=== PATIENT | female | born 1945 | race Caucasian/White ===

== ENCOUNTER 2018-04-09 16:51 | Inpatient (IN) | payer MEDICARE ==
[~2018-04-09] VITALS: Ht 167.6 cm; Wt 76.9 kg
[~2018-04-09 16:51] MED LIST: BENA20TA76 PO; BENA20TA82 PO; CLOP75TA15 PO; DABI150C PO; EZET10TA14 PO; GLIM2TAB2 PO; KRIL500C PO; MAGN400T6 PO; METO25TA6 PO; MULT-933 PO; PANT-47 PO; TRAZ-218 PO
[2018-04-09 17:44] LABS: BASOPHILS # (AUTO) 0.1 X10'3 (0-0.2); BASOPHILS % (AUTO) 0.9 % (0-1); EOSINOPHILS # (AUTO) 0.1 X10'3 (0-0.9); HEMATOCRIT 40.8 % (35.0-45.0); HEMOGLOBIN 14.1 g/dl (12.0-16.0); LYMPHOCYTES # (AUTO) 0.4 X10'3 (1.1-4.8); LYMPHOCYTES % (AUTO) 6.9 % (21-51); MEAN CORPUSCULAR HEMOGLOBIN 29.7 PG (27.0-31.0); MEAN CORPUSCULAR HGB CONC 34.7 % (33.0-36.5); MEAN CORPUSCULAR VOLUME 85.8 FL (78-98); MEAN PLATELET VOLUME 7.5 FL (7.4-10.4); MONOCYTES # (AUTO) 0.2 X10'3 (0-0.9); MONOCYTES % (AUTO) 2.6 % (2-12); NEUTROPHILS # (AUTO) 5.5 X10'3 (1.8-7.7); NEUTROPHILS % (AUTO) 88.6 % (42-75); PLATELET COUNT 186 X10'3 (140-440); RED BLOOD COUNT 4.75 X10'6 (4.20-5.60); WHITE BLOOD COUNT 6.3 X10'3 (4.5-11.0)
[2018-04-09 17:55] LABS: ALANINE AMINOTRANSFERASE 30 U/L (12-78); ALBUMIN 3.7 G/DL (3.4-5.0); ALKALINE PHOSPHATASE 103 IU/L (46-116); ANION GAP 12 (8-16); ASPARTATE AMINO TRANSFERASE 22 U/L (10-37); BILIRUBIN,TOTAL 0.7 MG/DL (0.1-1.0); BLOOD UREA NITROGEN 19 MG/DL (7-18); BUN/CREATININE RATIO 23.5 (6.6-38.0); CALCIUM 8.9 MG/DL (8.5-10.1); CHLORIDE 103 MMOL/L (99-107); CREATININE 0.81 MG/DL (0.40-0.90); GLUCOSE 154 MG/DL (70-104); POTASSIUM 3.5 MMOL/L (3.5-5.1); SODIUM 138 MMOL/L (135-145); TOTAL CARBON DIOXIDE 23.1 MMOL/L (24-32); TOTAL PROTEIN 7.4 G/DL (6.4-8.2); eGFR 69 ML/MIN
[2018-04-09 17:57] LABS: CLARITY,URINE CLEAR (Clear); COLOR,URINE YELLOW (Yellow); GLUCOSE, URINE >=1000 mg/dl (Neg); KETONES,URINE 40 mg/dl (Neg); LEUKOCYTE ESTERASE ,URINE NEGATIVE (Neg); NITRITES, URINE NEGATIVE (Neg); OCCULT BLOOD,URINE NEGATIVE (Neg); PROTEIN,URINE NEGATIVE (Neg); UROBILINOGEN,URINE 0.2 E.U/dL (0.2-1.0)
[2018-04-09 18:20] LABS: UA COLLECTION TYPE CLN CATCH MIDSTREAM
[2018-04-09] MEDS ORDERED: ondansetron/PF 4mg/2ml inj IV ONE ×2 (18:20→22:50)
[2018-04-09 18:21] LABS: BACTERIA,URINE 4+ /HPF (Neg); RBC,URINE NONE SEEN /HPF (0-2); SQUAMOUS EPITHELIAL CELL,UR FEW /LPF (FEW); WBC CLUMPS,URINE FEW /HPF (NEGATIVE); WBC,URINE 0-4 /HPF (0-4)
[2018-04-09] MEDS ORDERED: normal saline 1000ml 1,000 ML IV ONE (18:25)
[2018-04-09] MEDS ORDERED: iohexol 350MG/ML 100ml bottle IV ONE (19:09)
[2018-04-09] MEDS ORDERED: LORazepam 2 mg/ml vial IV ONE (20:15)
[2018-04-09] MEDS ORDERED: metoprolol tartrate 50mg tablet PO ONE ×2 (21:15→21:20)
[2018-04-09] MEDS ORDERED: normal saline 1000ML IV soln IVB ONE (21:15)
[2018-04-09] MEDS ORDERED: METO50TA7 PO (22:09)
[2018-04-09] MEDS ORDERED: GLIM1TAB46 PO (22:09)
[2018-04-09] MEDS ORDERED: MULT-955 PO (22:09)
[2018-04-09] MEDS ORDERED: MAGN400C PO (22:09)
[2018-04-09] MEDS ORDERED: EMPA25TA PO (22:09)
[2018-04-09] MEDS ORDERED: KRIL500C PO (22:09)
[2018-04-09] MEDS ORDERED: BENA10TA74 PO (22:09)
[2018-04-09] MEDS ORDERED: CLOP75TA15 PO (22:09)
[2018-04-09] MEDS ORDERED: EZET10TA14 PO (22:09)
[2018-04-09] MEDS ORDERED: diltiazem 5mg/ml 5ml inj. IV ONE (22:15)
[2018-04-09] MEDS ORDERED: normal saline 1000ml 1,000 ML IV SCH (22:48)
[2018-04-09] MEDS ORDERED: magnesium hydroxide 30ml (MOM) UD suspension PO PRN (22:50)
[2018-04-09] MEDS ORDERED: mag hydrox/Alum hydrox/simeth 30ml oral suspension PO PRN (22:50)
[2018-04-09] MEDS ORDERED: dextrose ORAL solution 15 GM/59 ML bottle PO PRN ×2 (22:50)
[2018-04-09] MEDS ORDERED: dextrose 50%-water 50ml dispensing syringe IV PRN ×2 (22:50)
[2018-04-09] MEDS ORDERED: ondansetron/PF 4mg/2ml inj IV PRN (22:50)
[2018-04-09] MEDS ORDERED: insulin Lispro (HumaLOG) vial - multi-dose SQ SCH (22:50)
[2018-04-09] MEDS ORDERED: MESSAGE TO PHARMACY PO ONE (22:50)
[2018-04-09] MEDS ORDERED: acetaminophen 325mg tablet PO PRN (22:50)
[2018-04-09] MEDS ORDERED: glucagon, human recombinant 1mg kit SUBCUT PRN (22:50)
[2018-04-09] MEDS ORDERED: diltiazem-NS 100mg/100ml 100 ML IV SCH (22:55)
[2018-04-09] MEDS ORDERED: traZODone 50mg tablet PO PRN (22:55)
[2018-04-09 23:17] LABS: HEMOGLOBIN A1C 7.1 % (4.5-6.2)
[2018-04-09 23:50] VITALS: BP 118/64
[2018-04-10] VITALS (13 sets, daily range): BP systolic 100–131; BP diastolic 44–67
[2018-04-10 05:46] LABS: BASOPHILS % (AUTO) 0 % (0-1); EOSINOPHILS % (AUTO) 0.5 % (0-6); HEMATOCRIT 38.7 % (35.0-45.0); HEMOGLOBIN 13.6 g/dl (12.0-16.0); LYMPHOCYTES # (AUTO) 0.4 X10'3 (1.1-4.8); LYMPHOCYTES % (AUTO) 7.6 % (21-51); MEAN CORPUSCULAR HEMOGLOBIN 30.2 PG (27.0-31.0); MEAN CORPUSCULAR VOLUME 86.3 FL (78-98); MEAN PLATELET VOLUME 7.1 FL (7.4-10.4); MONOCYTES # (AUTO) 0.2 X10'3 (0-0.9); MONOCYTES % (AUTO) 3.7 % (2-12); NEUTROPHILS # (AUTO) 4.2 X10'3 (1.8-7.7); NEUTROPHILS % (AUTO) 88.2 % (42-75); PLATELET COUNT 162 X10'3 (140-440); RED BLOOD COUNT 4.49 X10'6 (4.20-5.60); WHITE BLOOD COUNT 4.8 X10'3 (4.5-11.0)
[2018-04-10 06:02] LABS: ALANINE AMINOTRANSFERASE 27 U/L (12-78); ALBUMIN 3.1 G/DL (3.4-5.0); ALBUMIN/GLOBULIN RATIO 0.9 (1.1-1.5); ALKALINE PHOSPHATASE 93 IU/L (46-116); ANION GAP 13 (8-16); ASPARTATE AMINO TRANSFERASE 16 U/L (10-37); BILIRUBIN,TOTAL 0.7 MG/DL (0.1-1.0); BLOOD UREA NITROGEN 15 MG/DL (7-18); BUN/CREATININE RATIO 23.1 (6.6-38.0); CHLORIDE 107 MMOL/L (99-107); CREATININE 0.65 MG/DL (0.40-0.90); GLUCOSE 162 MG/DL (70-104); POTASSIUM 3.6 MMOL/L (3.5-5.1); SODIUM 141 MMOL/L (135-145); TOTAL CARBON DIOXIDE 20.7 MMOL/L (24-32); TOTAL PROTEIN 6.4 G/DL (6.4-8.2); eGFR 89 ML/MIN
[2018-04-10 07:48] LABS: PARATHYROID HORMONE 101 PG/ML (11-67)
[2018-04-10] MEDS: metoprolol tartrate 25mg tablet PO SCH ×2 (08:04→19:58)
[2018-04-10] MEDS: LIDOcaine 5% patch TP SCH (08:05)
[2018-04-10] MEDS: pantoprazole 40mg Tablet.DR PO SCH ×2 (08:05→20:01)
[2018-04-10] MEDS: diltiazem 30mg tablet PO SCH ×2 (16:01→20:00)
[2018-04-10] MEDS: dabigatran 150mg capsule PO SCH (20:02)
[2018-04-11] MEDS: diltiazem 30mg tablet PO SCH ×2 (02:40→08:23)
[2018-04-11 03:00] VITALS: BP 109/56
[2018-04-11 05:57] LABS: BASOPHILS % (AUTO) 0.3 % (0-1); EOSINOPHILS # (AUTO) 0.1 X10'3 (0-0.9); EOSINOPHILS % (AUTO) 1.4 % (0-6); HEMATOCRIT 37.3 % (35.0-45.0); HEMOGLOBIN 13.1 g/dl (12.0-16.0); LYMPHOCYTES # (AUTO) 1.1 X10'3 (1.1-4.8); MEAN CORPUSCULAR HEMOGLOBIN 30.8 PG (27.0-31.0); MEAN CORPUSCULAR HGB CONC 35.2 % (33.0-36.5); MEAN CORPUSCULAR VOLUME 87.5 FL (78-98); MEAN PLATELET VOLUME 7.6 FL (7.4-10.4); MONOCYTES # (AUTO) 0.4 X10'3 (0-0.9); NEUTROPHILS # (AUTO) 3.6 X10'3 (1.8-7.7); NEUTROPHILS % (AUTO) 69.3 % (42-75); PLATELET COUNT 145 X10'3 (140-440); RED BLOOD COUNT 4.27 X10'6 (4.20-5.60); WHITE BLOOD COUNT 5.2 X10'3 (4.5-11.0)
[2018-04-11 06:00] VITALS: BP 126/56
[2018-04-11 06:14] LABS: ALANINE AMINOTRANSFERASE 23 U/L (12-78); ALBUMIN 3.1 G/DL (3.4-5.0); ALBUMIN/GLOBULIN RATIO 0.9 (1.1-1.5); ALKALINE PHOSPHATASE 92 IU/L (46-116); ANION GAP 9 (8-16); ASPARTATE AMINO TRANSFERASE 17 U/L (10-37); BILIRUBIN,TOTAL 0.4 MG/DL (0.1-1.0); BLOOD UREA NITROGEN 13 MG/DL (7-18); BUN/CREATININE RATIO 19.4 (6.6-38.0); CALCIUM 8.3 MG/DL (8.5-10.1); CHLORIDE 106 MMOL/L (99-107); CREATININE 0.67 MG/DL (0.40-0.90); GLUCOSE 152 MG/DL (70-104); POTASSIUM 3.5 MMOL/L (3.5-5.1); SODIUM 139 MMOL/L (135-145); TOTAL CARBON DIOXIDE 24.2 MMOL/L (24-32); TOTAL PROTEIN 6.4 G/DL (6.4-8.2); eGFR 86 ML/MIN
[2018-04-11 07:15] LABS: IMMUNOGLOBULIN A, QN, SERUM 195 mg/dL (64-422); IMMUNOGLOBULIN G, QN, SERUM 1019 mg/dL (700-1600); IMMUNOGLOBULIN M, QN, SERUM 58 mg/dL (26-217)
[2018-04-11] MEDS: pantoprazole 40mg Tablet.DR PO SCH (08:22)
[2018-04-11] MEDS: dabigatran 150mg capsule PO SCH (08:22)
[2018-04-11] MEDS: LIDOcaine 5% patch TP SCH (08:23)
[2018-04-11] MEDS: metoprolol tartrate 25mg tablet PO SCH (08:23)
[2018-04-11] MEDS ORDERED: DILT120C62 PO (10:33)
== END 2018-04-11 11:00 | disposition home or self-care (01) | DRG 309 ==
LOC: ER 16:52 → ED HOLD 22:48 → PCU 3S 23:39
PROVIDERS: ADMIT Internal Medicine; ATTEND Family Medicine
PROC: B32T1ZZ Computerized Tomography (CT Scan) of Left Pulmonary Artery using Low Osmolar Contrast (ICD-10-PCS; principal; 2018-04-09)
PROC: B3201ZZ Computerized Tomography (CT Scan) of Thoracic Aorta using Low Osmolar Contrast (ICD-10-PCS; 2018-04-09)
PROC: B32S1ZZ Computerized Tomography (CT Scan) of Right Pulmonary Artery using Low Osmolar Contrast (ICD-10-PCS; 2018-04-09)
PROC: B4201ZZ Computerized Tomography (CT Scan) of Abdominal Aorta using Low Osmolar Contrast (ICD-10-PCS; 2018-04-09)
PROC: B4241ZZ Computerized Tomography (CT Scan) of Superior Mesenteric Artery using Low Osmolar Contrast (ICD-10-PCS; 2018-04-09)
PROC: B4281ZZ Computerized Tomography (CT Scan) of Bilateral Renal Arteries using Low Osmolar Contrast (ICD-10-PCS; 2018-04-09)
PROC: B4211ZZ Computerized Tomography (CT Scan) of Celiac Artery using Low Osmolar Contrast (ICD-10-PCS; 2018-04-09)
DX: I48.91 Unspecified atrial fibrillation (principal); M48.54XA Collapsed vertebra, not elsewhere classified, thoracic region, initial encounter for fracture; E11.9 Type 2 diabetes mellitus without complications; I47.1 Supraventricular tachycardia; I10 Essential (primary) hypertension; I25.10 Atherosclerotic heart disease of native coronary artery without angina pectoris; Z90.710 Acquired absence of both cervix and uterus; Z88.1 Allergy status to other antibiotic agents; Z88.0 Allergy status to penicillin; Z88.2 Allergy status to sulfonamides; Z88.8 Allergy status to other drugs, medicaments and biological substances; Z79.899 Other long term (current) drug therapy; Z85.3 Personal history of malignant neoplasm of breast; Z82.49 Family history of ischemic heart disease and other diseases of the circulatory system; Z83.3 Family history of diabetes mellitus; Z84.89 Family history of other specified conditions
CPT/HCPCS: 36415; 71045; 71275; 74175; 80053; 81001; 82784; 82948; 83036; 83970; 84443; 84484; 85025; 86334; 87070; 87077; 87088; 87186; 87502; 87503; 93005; 96374; 96375; 99285; J2060; J2405; J3490; J7030; Q9967

== ENCOUNTER 2018-06-27 10:09 | Emergency (ER) | payer MEDICARE ==
[~2018-06-27] VITALS: Ht 172.7 cm; Wt 80.0 kg
[~2018-06-27 10:09] MED LIST changes: +BENA10TA74 PO; -BENA20TA76 PO; -BENA20TA82 PO; -CLOP75TA15 PO; +DILT120C62 PO; +EMPA25TA PO; +MAGN400C PO; -MAGN400T6 PO; -METO25TA6 PO; +METO50TA7 PO; -MULT-933 PO; +MULT-955 PO
[2018-06-27 10:50] LABS: BASOPHILS % (AUTO) 0.3 % (0-1); EOSINOPHILS % (AUTO) 0.2 % (0-6); HEMATOCRIT 41.4 % (35.0-45.0); LYMPHOCYTES # (AUTO) 0.6 X10'3 (1.1-4.8); LYMPHOCYTES % (AUTO) 12.1 % (21-51); MEAN CORPUSCULAR HGB CONC 33.9 % (33.0-36.5); MEAN CORPUSCULAR VOLUME 88.6 FL (78-98); MONOCYTES # (AUTO) 0.2 X10'3 (0-0.9); MONOCYTES % (AUTO) 4.6 % (2-12); NEUTROPHILS # (AUTO) 3.9 X10'3 (1.8-7.7); NEUTROPHILS % (AUTO) 82.8 % (42-75); PLATELET COUNT 184 X10'3 (140-440); RED BLOOD COUNT 4.68 X10'6 (4.20-5.60); RED CELL DISTRIBUTION WIDTH 11.7 % (11.5-14.5); WHITE BLOOD COUNT 4.7 X10'3 (4.5-11.0)
[2018-06-27 11:03] LABS: PARTIAL THROMBOPLASTIN TIME 29 SECONDS (22-32); PROTHROMBIN TIME 10.6 SECONDS (9.0-12.0)
[2018-06-27 11:04] LABS: ALANINE AMINOTRANSFERASE 26 U/L (12-78); ALBUMIN 3.6 G/DL (3.4-5.0); ALBUMIN/GLOBULIN RATIO 0.9 (1.1-1.5); ALKALINE PHOSPHATASE 97 IU/L (46-116); ANION GAP 15 (8-16); ASPARTATE AMINO TRANSFERASE 13 U/L (10-37); BILIRUBIN,TOTAL 0.7 MG/DL (0.1-1.0); BLOOD UREA NITROGEN 20 MG/DL (7-18); BUN/CREATININE RATIO 28.6 (6.6-38.0); CALCIUM 8.4 MG/DL (8.5-10.1); CHLORIDE 102 MMOL/L (99-107); GLUCOSE 145 MG/DL (70-104); POTASSIUM 3.5 MMOL/L (3.5-5.1); SODIUM 137 MMOL/L (135-145); TOTAL CARBON DIOXIDE 20.3 MMOL/L (24-32); TOTAL PROTEIN 7.5 G/DL (6.4-8.2); eGFR 82 ML/MIN
[2018-06-27] MEDS ORDERED: normal saline 1000ml 1,000 ML IV ONE (11:30)
[2018-06-27 11:38] LABS: CLARITY,URINE CLEAR (Clear); COLOR,URINE YELLOW (Yellow); GLUCOSE, URINE >=1000 mg/dl (Neg); KETONES,URINE 40 mg/dl (Neg); LEUKOCYTE ESTERASE ,URINE NEGATIVE (Neg); NITRITES, URINE NEGATIVE (Neg); OCCULT BLOOD,URINE NEGATIVE (Neg); PH,URINE 5.5 (4.8-8.0); PROTEIN,URINE NEGATIVE (Neg); UROBILINOGEN,URINE 0.2 E.U/dL (0.2-1.0)
[2018-06-27 11:42] LABS: UA COLLECTION TYPE NON-SPECIFIED
[2018-06-27 12:07] LABS: BACTERIA,URINE NONE SEEN /HPF (Neg); MUCUS STRANDS NONE SEEN /LPF (Neg); RBC,URINE NONE SEEN /HPF (0-2); SQUAMOUS EPITHELIAL CELL,UR FEW /LPF (FEW); WBC,URINE 0-4 /HPF (0-4)
[2018-06-27 12:42] VITALS: BP 116/59
== END 2018-06-27 12:38 | disposition home or self-care (01) ==
LOC: ER 10:10
DX: I48.91 Unspecified atrial fibrillation (principal); I25.10 Atherosclerotic heart disease of native coronary artery without angina pectoris; I10 Essential (primary) hypertension; E11.9 Type 2 diabetes mellitus without complications; Z98.61 Coronary angioplasty status; Z88.0 Allergy status to penicillin; Z88.1 Allergy status to other antibiotic agents; Z88.2 Allergy status to sulfonamides; Z88.5 Allergy status to narcotic agent; Z88.8 Allergy status to other drugs, medicaments and biological substances; Z79.899 Other long term (current) drug therapy
CPT/HCPCS: 36415; 71045; 80053; 81001; 84484; 85025; 85610; 85730; 93005; 99284; J7030

== ENCOUNTER 2018-06-30 13:17 | Emergency (ER) | payer MEDICARE ==
[~2018-06-30] VITALS: Ht 167.6 cm; Wt 79.0 kg
[2018-06-30 15:19] VITALS: BP 149/108
== END 2018-06-30 15:21 | disposition home or self-care (01) ==
LOC: ER 13:17
DX: I48.91 Unspecified atrial fibrillation (principal); I25.10 Atherosclerotic heart disease of native coronary artery without angina pectoris; I10 Essential (primary) hypertension; E11.9 Type 2 diabetes mellitus without complications; Z95.5 Presence of coronary angioplasty implant and graft; Z85.3 Personal history of malignant neoplasm of breast; Z88.0 Allergy status to penicillin; Z88.8 Allergy status to other drugs, medicaments and biological substances; Z88.2 Allergy status to sulfonamides; Z88.1 Allergy status to other antibiotic agents; Z88.5 Allergy status to narcotic agent; Z88.6 Allergy status to analgesic agent
CPT/HCPCS: 93005; 99283

== ENCOUNTER 2018-07-21 13:53 | Day surgery (SDC) | payer MEDICARE ==
[~2018-07-21] VITALS: Ht 167.6 cm; Wt 78.7 kg
[2018-07-21] VITALS (12 sets, daily range): BP systolic 106–160; BP diastolic 58–80
[2018-07-21] MEDS ORDERED: normal saline 1000ml 1,000 ML IV SCH (14:30)
[2018-07-21] MEDS ORDERED: fentaNYL/PF 50MCG/1 ML 2ML syringe IV ONE (14:30)
[2018-07-21] MEDS ORDERED: MIDAZolam 5mg/ml 2ml vial IV ONE (14:30)
[2018-07-21] MEDS ORDERED: CALC-159 (14:51)
== END 2018-07-21 19:25 | disposition home or self-care (01) ==
LOC: SSTAY O 13:53
PROVIDERS: ATTEND Internal Medicine Interventional Cardiology
DX: I48.0 Paroxysmal atrial fibrillation (principal); I10 Essential (primary) hypertension; E11.9 Type 2 diabetes mellitus without complications; I25.10 Atherosclerotic heart disease of native coronary artery without angina pectoris; I47.1 Supraventricular tachycardia; Z85.3 Personal history of malignant neoplasm of breast; Z88.1 Allergy status to other antibiotic agents; Z88.2 Allergy status to sulfonamides; Z88.0 Allergy status to penicillin; Z88.6 Allergy status to analgesic agent; Z88.8 Allergy status to other drugs, medicaments and biological substances; Z79.899 Other long term (current) drug therapy; Z95.5 Presence of coronary angioplasty implant and graft; Z98.890 Other specified postprocedural states
CPT/HCPCS: 82948; 92960; 93005; J2250; J3010; J7030

== ENCOUNTER 2018-10-14 13:29 | Outpatient (CLI) | payer MEDICARE ==
[~2018-10-14 13:29] MED LIST changes: +CALC-159; -DILT120C62 PO
== END 2018-10-14 23:59 | disposition home or self-care (01) ==
LOC: VAS 13:29
PROVIDERS: ATTEND Family Medicine
DX: R60.0 Localized edema (principal); I10 Essential (primary) hypertension; E11.9 Type 2 diabetes mellitus without complications; Z88.0 Allergy status to penicillin; Z88.2 Allergy status to sulfonamides; Z88.1 Allergy status to other antibiotic agents; Z88.5 Allergy status to narcotic agent; Z88.6 Allergy status to analgesic agent
CPT/HCPCS: 93970

== ENCOUNTER 2020-04-03 06:38 | Emergency (ER) | payer MEDICARE ==
[~2020-04-03] VITALS: Ht 172.7 cm; Wt 79.5 kg
[~2020-04-03 06:38] MED LIST changes: -EZET10TA14 PO; +EZET10TA6 PO; -GLIM2TAB2 PO; +GLIM2TAB6 PO; -TRAZ-218 PO; +TRAZ-251 PO
--- NOTE | 2020-04-03 07:14 | NUR ---
PT BROUGHT IN FROM HOME BY EMS PT STATS THAT LAST NIGHT SHE FELT HER HEART RATE INCREASE BUT TRIED TO SLEEP IT OFF BUT WOKE IT STILL FELLING IT GOING FAST SO SHE CALLED EMS TO BE BROUGHT IN
[2020-04-03 07:23] LABS: BASOPHILS % (AUTO) 0.7 % (0-1); EOSINOPHILS # (AUTO) 0.1 X10'3 (0-0.9); EOSINOPHILS % (AUTO) 2.2 % (0-6); HEMATOCRIT 36.4 % (35.0-45.0); HEMOGLOBIN 12.4 g/dl (12.0-16.0); LYMPHOCYTES # (AUTO) 2.5 X10'3 (1.1-4.8); LYMPHOCYTES % (AUTO) 42.7 % (21-51); MEAN CORPUSCULAR HEMOGLOBIN 30.7 PG (27.0-31.0); MEAN CORPUSCULAR HGB CONC 34.2 g/dL (33.0-36.5); MEAN CORPUSCULAR VOLUME 89.7 FL (78-98); MEAN PLATELET VOLUME 7.1 FL (7.4-10.4); MONOCYTES # (AUTO) 0.4 X10'3 (0-0.9); MONOCYTES % (AUTO) 6.6 % (2-12); NEUTROPHILS # (AUTO) 2.8 X10'3 (1.8-7.7); NEUTROPHILS % (AUTO) 47.8 % (42-75); PLATELET COUNT 179 X10'3 (140-440); RED BLOOD COUNT 4.05 X10'6 (4.20-5.60); RED CELL DISTRIBUTION WIDTH 12.9 % (11.5-14.5); WHITE BLOOD COUNT 5.8 X10'3 (4.5-11.0)
--- NOTE | 2020-04-03 07:24 | NUR ---
PT STATE HER HEART RATE IS STARTING TO FEEL LIKE IT NORMALY DOES
[2020-04-03 07:34] LABS: PARTIAL THROMBOPLASTIN TIME 27 SECONDS (22-32)
[2020-04-03 07:43] LABS: ALANINE AMINOTRANSFERASE 51 U/L (12-78); ALBUMIN/GLOBULIN RATIO 1.1 (1.1-1.5); ALKALINE PHOSPHATASE 78 IU/L (46-116); ASPARTATE AMINO TRANSFERASE 19 U/L (10-37); BILIRUBIN,TOTAL 0.6 MG/DL (0.1-1.0); BLOOD UREA NITROGEN 15 MG/DL (7-18); BUN/CREATININE RATIO 18.1 (6.6-38.0); CALCIUM 9.3 MG/DL (8.5-10.1); CREATININE 0.83 MG/DL (0.40-0.90); GLUCOSE 228 MG/DL (70-104); MAGNESIUM 1.8 MG/DL (1.5-2.4); TOTAL CARBON DIOXIDE 24.1 MMOL/L (24-32); TOTAL PROTEIN 7.6 G/DL (6.4-8.2); eGFR 67 ML/MIN
[2020-04-03 07:48] LABS: ANION GAP 13 (8-16); CHLORIDE 100 MMOL/L (99-107); POTASSIUM 3.3 MMOL/L (3.5-5.1); SODIUM 137 MMOL/L (135-145)
[2020-04-03] MEDS ORDERED: propofol 10mg/ml 20ml vial IV ONE (07:55)
[2020-04-03] MEDS ORDERED: metoprolol tartrate 1mg/ml inj IV ONE ×3 (08:55→10:25)
--- NOTE | 2020-04-03 10:37 | NUR ---
SECOND DOSE OF METROPROLOL GIVEN HEART RATE [id number]
[2020-04-03] MEDS ORDERED: metoprolol succinate 25mg (24-HOUR) SR. Tablet PO SCH (11:17)
[2020-04-03 14:20] VITALS: BP 144/92
== END 2020-04-03 13:24 | disposition home or self-care (01) ==
LOC: ER 06:38
DX: I48.91 Unspecified atrial fibrillation (principal); I25.10 Atherosclerotic heart disease of native coronary artery without angina pectoris; I10 Essential (primary) hypertension; E11.9 Type 2 diabetes mellitus without complications; Z98.51 Tubal ligation status; Z88.0 Allergy status to penicillin; Z88.2 Allergy status to sulfonamides; Z88.6 Allergy status to analgesic agent; Z88.5 Allergy status to narcotic agent; Z88.8 Allergy status to other drugs, medicaments and biological substances; Z79.899 Other long term (current) drug therapy
CPT/HCPCS: 36415; 71045; 80053; 83735; 83880; 84484; 85025; 85610; 85730; 93005; 96374; 96376; 99284; 99285; J3490

== ENCOUNTER 2022-03-17 12:17 | Inpatient (IN) | payer MEDICARE ==
[~2022-03-17] VITALS: Ht 203.2 cm; Wt 81.5 kg
[~2022-03-17 12:17] MED LIST changes: -CALC-159; +CALC-159 PO
[2022-03-17 13:11] LABS: BASOPHILS % (AUTO) 0.3 % (0-1); EOSINOPHILS # (AUTO) 0.1 X10'3 (0-0.9); EOSINOPHILS % (AUTO) 0.7 % (0-6); HEMATOCRIT 42.4 % (35.0-45.0); HEMOGLOBIN 14.7 g/dl (12.0-16.0); LYMPHOCYTES # (AUTO) 1.7 X10'3 (1.1-4.8); LYMPHOCYTES % (AUTO) 22.6 % (21-51); MEAN CORPUSCULAR HEMOGLOBIN 30.7 PG (27.0-31.0); MEAN CORPUSCULAR HGB CONC 34.7 g/dL (33.0-36.5); MEAN CORPUSCULAR VOLUME 88.5 FL (78-98); MEAN PLATELET VOLUME 7.5 FL (7.4-10.4); MONOCYTES # (AUTO) 0.5 X10'3 (0-0.9); MONOCYTES % (AUTO) 6.8 % (2-12); NEUTROPHILS # (AUTO) 5.3 X10'3 (1.8-7.7); NEUTROPHILS % (AUTO) 69.6 % (42-75); PLATELET COUNT 206 X10'3 (140-440); RED BLOOD COUNT 4.79 X10'6 (4.20-5.60); RED CELL DISTRIBUTION WIDTH 12.7 % (11.5-14.5); WHITE BLOOD COUNT 7.6 X10'3 (4.5-11.0)
--- NOTE | 2022-03-17 13:13 | NUR ---
STROKE ALERT 2 CALLED.
[2022-03-17] MEDS ORDERED: ringers solution, lactated 500ml IV solution IV ONE (13:20)
[2022-03-17 13:24] LABS: ALANINE AMINOTRANSFERASE 34 U/L (12-78); ALBUMIN 4.2 G/DL (3.4-5.0); ALKALINE PHOSPHATASE 120 IU/L (46-116); ANION GAP 7 (8-16); ASPARTATE AMINO TRANSFERASE 20 U/L (10-37); BILIRUBIN,TOTAL 0.8 MG/DL (0.1-1.0); BLOOD UREA NITROGEN 14 MG/DL (7-18); BUN/CREATININE RATIO 15.7 (6.6-38.0); CALCIUM 9.4 MG/DL (8.5-10.1); CHLORIDE 98 MMOL/L (99-107); CREATININE 0.89 MG/DL (0.40-0.90); GLUCOSE 308 MG/DL (70-104); POTASSIUM 3.1 MMOL/L (3.5-5.1); SODIUM 133 MMOL/L (135-145); TOTAL CARBON DIOXIDE 27.7 MMOL/L (24-32); TOTAL PROTEIN 8.4 G/DL (6.4-8.2); eGFR 61 ML/MIN
--- NOTE | 2022-03-17 13:26 | NUR ---
spoke to MD, not treating afib rvr at this time, would like imaging and test done first. paged CT.
[2022-03-17 13:33] LABS: APTT 37 SECONDS (22-32); D-DIMER 0.59 MG/L FEU (0-0.50)
[2022-03-17 13:36] LABS: CLARITY,URINE CLOUDY (Clear); COLOR,URINE YELLOW (Yellow); GLUCOSE, URINE >=1000 mg/dl (Neg); KETONES,URINE NEGATIVE (Neg); LEUKOCYTE ESTERASE ,URINE LARGE (Neg); NITRITES, URINE NEGATIVE (Neg); OCCULT BLOOD,URINE TRACE-INTACT (Neg); PROTEIN,URINE NEGATIVE (Neg); UROBILINOGEN,URINE 0.2 E.U/dL (0.2-1.0)
[2022-03-17 13:39] LABS: UA COLLECTION TYPE CLN CATCH MIDSTREAM
[2022-03-17 13:40] LABS: BACTERIA,URINE 4+ /HPF (Neg); MUCUS STRANDS FEW /LPF (Neg); RBC,URINE 0-2 /HPF (0-2); SQUAMOUS EPITHELIAL CELL,UR NONE SEEN /LPF (FEW); WBC,URINE TNTC /HPF (0-4)
[2022-03-17] MEDS ORDERED: CefTRIAXone/D5W-Rocephin 1gm 50 ML IV ONE (13:55)
[2022-03-17] MEDS ORDERED: diltiazem 5mg/ml 5ml inj. IV ONE (15:20)
[2022-03-17] MEDS ORDERED: magnesium hydroxide 30ml (MOM) UD suspension PO PRN (15:45)
[2022-03-17] MEDS ORDERED: DEXTROSE 15 GM of carb/4 tabs (each vial/BOTTLE has 4 tablets) PO PRN ×2 (15:45)
[2022-03-17] MEDS ORDERED: MESSAGE TO PHARMACY PO ONE (15:45)
[2022-03-17] MEDS ORDERED: mag hydrox/Alum hydrox/simeth 30ml oral suspension PO PRN (15:45)
[2022-03-17] MEDS ORDERED: ondansetron/PF 4mg/2ml inj IV PRN (15:45)
[2022-03-17] MEDS ORDERED: dextrose 50%-water 50ml dispensing syringe IV PRN ×2 (15:45)
[2022-03-17] MEDS ORDERED: acetaminophen 325mg tablet PO PRN ×2 (15:45)
[2022-03-17] MEDS ORDERED: glucagon, human recombinant 1mg kit SUBCUT PRN (15:45)
[2022-03-17 16:46] LABS: HEMOGLOBIN A1C 10.4 % (4.5-6.2)
--- NOTE | 2022-03-17 17:49 | NUR ---
3rd Effer-K given. will pass on to production supervisor off shift
[2022-03-17] MEDS ORDERED: GLIM4TAB7 PO (18:06)
[2022-03-17] MEDS ORDERED: FURO-150 PO (18:06)
[2022-03-17] MEDS ORDERED: MAGN400C PO (18:06)
[2022-03-17] MEDS ORDERED: BENA20TA82 PO (18:06)
[2022-03-17] MEDS ORDERED: METF-900 PO (18:06)
[2022-03-17] MEDS ORDERED: ASCO100T12 PO (18:06)
[2022-03-17 19:00] VITALS: BP 164/95
--- NOTE | 2022-03-17 19:17 | NUR ---
called daughter Rosa at [phone] - she will get me the current med list when she gets back to her mom's house.
[2022-03-17] MEDS ORDERED: magnesium 4gm in 100ml NS 100 ML IV PRN (19:55)
[2022-03-17] MEDS ORDERED: magnesium 2GM in 50ml NS 50 ML IV PRN (19:55)
[2022-03-17] MEDS ORDERED: magnesium Cl slow-release 64mg tablet PO PRN (19:55)
[2022-03-17] MEDS ORDERED: potassium CL 10mEq/100ml bag 100 ML IV PRN (19:55)
[2022-03-17] MEDS ORDERED: POTASSIUM BICARB 20meq eff tab 20 MEQ TABLET.EFF PO PRN ×2 (19:55)
[2022-03-17] MEDS ORDERED: K and/or MAG REPLACEMENT MC SCH (20:00)
[2022-03-17] MEDS: docusate sod 100mg capsule PO SCH (20:00)
--- NOTE | 2022-03-17 20:00 | NUR ---
pt refused humalog insulin - "it made me itch and have a rash everywhere". not on allergy list - daughter unaware of allergy. will notify
[2022-03-17] MEDS: metoprolol succinate 25mg (24-HOUR) SR. Tablet PO SCH (20:49)
[2022-03-17 20:51] VITALS: BP 152/93
[2022-03-17] MEDS ORDERED: insulin glargine (Lantus) pen - multi-dose SQ SCH (21:00)
[2022-03-17] MEDS ORDERED: LANTUS SQ (21:28)
[2022-03-17] MEDS ORDERED: POTA99TA26 PO (21:30)
[2022-03-17 21:45] VITALS: BP_SYST 152; BP_SYST 165; BP_SYST 175; BP_DIAS 91; BP_DIAS 93
[2022-03-17] MEDS ORDERED: MEMA10TA56 PO (21:47)
[2022-03-17] MEDS: dabigatran 150mg capsule PO SCH (22:19)
[2022-03-17] MEDS: insulin Lispro (HumaLOG) vial - multi-dose SQ SCH (22:20)
[2022-03-17] MEDS: memantine 5mg tablet PO SCH (22:22)
--- NOTE | 2022-03-17 23:26 | NUR ---
pt unreliable historian - filled out admission assessment as much as possible. will need help of family
--- NOTE | 2022-03-17 23:33 | NUR ---
pt states, "I don't take lantus, I haven't in a long time." then a few minutes later, "I have no problem giving myself the lantus shots"
--- NOTE | 2022-03-18 00:07 | NUR ---
pt got herself up to bathroom. disconnected tabs alarm when she got up, then reconnected when she got back to bed. pt steady on her feet. will continue to monitor. hat placed in toilet for measuring urine output
[2022-03-18 05:51] LABS: BASOPHILS % (AUTO) 0.6 % (0-1); EOSINOPHILS # (AUTO) 0.1 X10'3 (0-0.9); EOSINOPHILS % (AUTO) 2.2 % (0-6); HEMATOCRIT 37.3 % (35.0-45.0); HEMOGLOBIN 13.1 g/dl (12.0-16.0); LYMPHOCYTES # (AUTO) 2.1 X10'3 (1.1-4.8); LYMPHOCYTES % (AUTO) 31.3 % (21-51); MEAN CORPUSCULAR HEMOGLOBIN 30.8 PG (27.0-31.0); MEAN CORPUSCULAR VOLUME 88.1 FL (78-98); MEAN PLATELET VOLUME 7.5 FL (7.4-10.4); MONOCYTES # (AUTO) 0.5 X10'3 (0-0.9); MONOCYTES % (AUTO) 6.9 % (2-12); NEUTROPHILS # (AUTO) 3.9 X10'3 (1.8-7.7); PLATELET COUNT 177 X10'3 (140-440); RED BLOOD COUNT 4.24 X10'6 (4.20-5.60); RED CELL DISTRIBUTION WIDTH 12.8 % (11.5-14.5); WHITE BLOOD COUNT 6.6 X10'3 (4.5-11.0)
[2022-03-18 05:55] LABS: ALBUMIN 3.2 G/DL (3.4-5.0); ANION GAP 8 (8-16); BLOOD UREA NITROGEN 13 MG/DL (7-18); BUN/CREATININE RATIO 19.1 (6.6-38.0); CALCIUM 8.6 MG/DL (8.5-10.1); CHLORIDE 105 MMOL/L (99-107); CREATININE 0.68 MG/DL (0.40-0.90); GLUCOSE 172 MG/DL (70-104); POTASSIUM 3.7 MMOL/L (3.5-5.1); SODIUM 139 MMOL/L (135-145); TOTAL CARBON DIOXIDE 26.1 MMOL/L (24-32); eGFR 84 ML/MIN
--- NOTE | 2022-03-18 06:33 | NUR ---
reproted to days. noted pt short term memory and plan for today with abx and. reminded pt her daughter coming in today.
[2022-03-18] MEDS: docusate sod 100mg capsule PO SCH (08:00)
[2022-03-18] MEDS ORDERED: CefTRIAXone/D5W-Rocephin 1gm 50 ML IV SCH (08:00)
[2022-03-18] MEDS ORDERED: ascorbic acid 500mg tablet PO SCH (08:35)
[2022-03-18] MEDS: insulin Lispro (HumaLOG) vial - multi-dose SQ SCH (08:36)
[2022-03-18] MEDS ORDERED: multivitamins, therapeutics tablet PO SCH (08:37)
[2022-03-18] MEDS: memantine 5mg tablet PO SCH (08:42)
[2022-03-18] MEDS: dabigatran 150mg capsule PO SCH (08:43)
[2022-03-18] MEDS: metoprolol succinate 25mg (24-HOUR) SR. Tablet PO SCH (08:43)
[2022-03-18] MEDS ORDERED: LEVO-65 PO (09:25)
--- NOTE | 2022-03-18 09:58 | NUR ---
Diabetes consult: Pt w/ hx of DM A1c 10.4 per EMR. Provided pt and her daughter w/ written and verbal DM ed w/ RD contact info. Addendum: 03/18/22 at [address] Amended: Links added.
[2022-03-18] MEDS ORDERED: magnesium oxide 400mg tablet PO SCH (20:00)
[2022-03-18] MEDS ORDERED: ezetimibe 10mg tablet PO SCH (21:00)
[2022-03-18] MEDS ORDERED: calcium carbonate/vitamin D3 tablet PO SCH (21:00)
== END 2022-03-18 14:04 | disposition home or self-care (01) | DRG 689 ==
LOC: ER 12:18 → ED HOLD 15:52 → EDBEDREQ 17:40 → ORTHO 4S 18:15
PROVIDERS: ADMIT Internal Medicine; ATTEND Internal Medicine
DX: N39.0 Urinary tract infection, site not specified (principal); G93.41 Metabolic encephalopathy; R47.01 Aphasia; B96.20 Unspecified Escherichia coli [E. coli] as the cause of diseases classified elsewhere; B96.89 Other specified bacterial agents as the cause of diseases classified elsewhere; E78.5 Hyperlipidemia, unspecified; I10 Essential (primary) hypertension; K21.9 Gastro-esophageal reflux disease without esophagitis; E11.9 Type 2 diabetes mellitus without complications; I25.10 Atherosclerotic heart disease of native coronary artery without angina pectoris; Z60.2 Problems related to living alone; I48.0 Paroxysmal atrial fibrillation; Z79.01 Long term (current) use of anticoagulants; Z79.4 Long term (current) use of insulin; Z79.899 Other long term (current) drug therapy; Z82.49 Family history of ischemic heart disease and other diseases of the circulatory system; Z83.3 Family history of diabetes mellitus; Z85.3 Personal history of malignant neoplasm of breast; Z85.41 Personal history of malignant neoplasm of cervix uteri; Z90.13 Acquired absence of bilateral breasts and nipples; Z90.710 Acquired absence of both cervix and uterus; Z88.0 Allergy status to penicillin; Z88.1 Allergy status to other antibiotic agents; Z88.8 Allergy status to other drugs, medicaments and biological substances; Z88.2 Allergy status to sulfonamides
CPT/HCPCS: 36415; 70450; 71045; 80048; 80053; 81001; 82948; 83036; 83735; 83880; 84484; 85025; 85379; 85610; 85730; 87077; 87081; 87088; 87186; 93005; 96365; 99285; G0378; J0696; J1815; J3490; J7030; J7120

== ENCOUNTER 2022-12-25 15:44 | Inpatient (IN) | payer MEDICARE ==
[~2022-12-25] VITALS: Ht 172.7 cm; Wt 95.6 kg
[2022-12-25 10:00] VITALS: BP 161/98
[~2022-12-25 15:44] MED LIST changes: +ASCO100T12 PO; -BENA10TA74 PO; -EMPA25TA PO; -GLIM2TAB6 PO; -KRIL500C PO; +LANTUS SQ; +MEMA10TA56 PO; -PANT-47 PO; -TRAZ-251 PO
[2022-12-25] MEDS ORDERED: fentaNYL/PF 50MCG/1 ML 2ML syringe IV ONE (16:05)
[2022-12-25] MEDS ORDERED: normal saline 1000ML IV soln IVB ONE (16:05)
[2022-12-25] MEDS ORDERED: ondansetron/PF 4mg/2ml inj IV ONE ×2 (16:10→18:45)
[2022-12-25 16:37] LABS: BASOPHILS # (AUTO) 0.1 X10'3 (0-0.2); BASOPHILS % (AUTO) 0.6 % (0-1); EOSINOPHILS # (AUTO) 0.1 X10'3 (0-0.9); EOSINOPHILS % (AUTO) 0.7 % (0-6); HEMATOCRIT 41.3 % (35.0-45.0); HEMOGLOBIN 14.2 g/dl (12.0-16.0); LYMPHOCYTES # (AUTO) 2.5 X10'3 (1.1-4.8); LYMPHOCYTES % (AUTO) 28.5 % (21-51); MEAN CORPUSCULAR HEMOGLOBIN 30.5 PG (27.0-31.0); MEAN CORPUSCULAR HGB CONC 34.4 g/dL (33.0-36.5); MEAN CORPUSCULAR VOLUME 88.5 FL (78-98); MEAN PLATELET VOLUME 7.6 FL (7.4-10.4); MONOCYTES # (AUTO) 0.5 X10'3 (0-0.9); MONOCYTES % (AUTO) 5.8 % (2-12); NEUTROPHILS # (AUTO) 5.6 X10'3 (1.8-7.7); NEUTROPHILS % (AUTO) 64.4 % (42-75); PLATELET COUNT 206 X10'3 (140-440); RED BLOOD COUNT 4.66 X10'6 (4.20-5.60); RED CELL DISTRIBUTION WIDTH 13.2 % (11.5-14.5); WHITE BLOOD COUNT 8.6 X10'3 (4.5-11.0)
[2022-12-25 16:58] LABS: ALANINE AMINOTRANSFERASE 29 U/L (12-78); ALBUMIN 4.4 G/DL (3.4-5.0); ALKALINE PHOSPHATASE 121 IU/L (46-116); ANION GAP 15 (8-16); ASPARTATE AMINO TRANSFERASE 24 U/L (10-37); BILIRUBIN,TOTAL 0.7 MG/DL (0.1-1.0); BLOOD UREA NITROGEN 21 MG/DL (7-18); BUN/CREATININE RATIO 21.4 (10.0-20.0); CALCIUM 9.9 MG/DL (8.5-10.1); CHLORIDE 102 MMOL/L (99-107); CREATININE 0.98 MG/DL (0.40-0.90); GLUCOSE 101 MG/DL (70-104); LIPASE 144 U/L (73-393); SODIUM 138 MMOL/L (135-145); TOTAL CARBON DIOXIDE 20.9 MMOL/L (24-32); TOTAL PROTEIN 8.7 G/DL (6.4-8.2); eGFR 55 ML/MIN
[2022-12-25 17:02] LABS: POTASSIUM 2.9 MMOL/L (3.5-5.1)
--- NOTE | 2022-12-25 17:02 | NUR ---
PT WAS IN THE HALLWAY LEANING AGAINST A WALL. PT YELLING FOR HELP. BS CHECK 107. PT PLACED IN WHEELCHAIR
[2022-12-25 17:03] LABS: CLARITY,URINE CLOUDY (Clear); COLOR,URINE YELLOW (Yellow); GLUCOSE, URINE NEGATIVE (Neg); KETONES,URINE NEGATIVE (Neg); LEUKOCYTE ESTERASE ,URINE NEGATIVE (Neg); NITRITES, URINE NEGATIVE (Neg); OCCULT BLOOD,URINE NEGATIVE (Neg); PROTEIN,URINE NEGATIVE (Neg)
[2022-12-25 17:07] LABS: UA COLLECTION TYPE CLN CATCH MIDSTREAM
[2022-12-25 17:12] LABS: TRANSITIONAL EPI CELLS,URINE FEW /HPF
[2022-12-25 17:14] LABS: SQUAMOUS EPITHELIAL CELL,UR FEW /LPF (FEW)
[2022-12-25 17:18] LABS: AMORPHOUS PHOSPHATES 1+; BACTERIA,URINE FEW /HPF (Neg); RBC,URINE 0-2 /HPF (0-2); WBC,URINE 0-4 /HPF (0-4)
[2022-12-25] MEDS: potassium Cl 40MEQ/1/2NS 520ml 520 ML IV SCH (18:35)
[2022-12-25] MEDS: magnesium 2GM in 50ml NS 50 ML IV SCH ×2 (18:36→21:43)
--- NOTE | 2022-12-25 18:39 | NUR ---
RN CALLED PHARMACY D/T ATIVAN NOT SHOWING IN OMNICELL. PER PHARMACY PT HAS ALLERGY LISTED. RN WILL CONFIRM WITH LON AND NOTIFY ONCOMING RN.
[2022-12-25] MEDS ORDERED: metoclopramide 5 mg/ml inj IV ONE (18:45)
[2022-12-25 18:52] LABS: MAGNESIUM 1.8 MG/DL (1.5-2.4)
[2022-12-25] MEDS ORDERED: LORazepam 2 mg/ml vial IV ONE (19:05)
[2022-12-25] MEDS ORDERED: potassium Cl 40MEQ/1/2NS 520ml 520 ML IV PRN (19:25)
[2022-12-25] MEDS ORDERED: acetaminophen 325mg tablet PO PRN (19:25)
[2022-12-25] MEDS ORDERED: magnesium 4gm in 100ml NS 100 ML IV PRN (19:25)
[2022-12-25] MEDS ORDERED: magnesium 2GM in 50ml NS 50 ML IV PRN (19:25)
[2022-12-25] MEDS ORDERED: morphine 2 MG/ML inj. syringe IV PRN (19:25)
[2022-12-25] MEDS ORDERED: HYDROmorphone inj. 0.5 MG/0.5 ML DISP.SYRIN IV PRN (19:30)
[2022-12-25] MEDS ORDERED: metoprolol tartrate 1mg/ml inj IV ONE (19:30)
[2022-12-25] MEDS: diatr meglu/diatrizoate 30ml oral sol.-(3 dose) bottle PO SCH ×3 (19:30→20:15)
--- NOTE | 2022-12-25 19:38 | NUR ---
Per Dr. Candis montejo.
[2022-12-25] MEDS ORDERED: iohexol 350MG/ML 100ml bottle IV ONE (19:42)
[2022-12-25] MEDS ORDERED: diatr meglu/diatrizoate 30ml oral sol.-(3 dose) bottle PO SCH ×2 (19:50→21:00)
[2022-12-25 19:54] LABS: ALANINE AMINOTRANSFERASE 34 U/L (12-78); ALBUMIN 4.4 G/DL (3.4-5.0); ALKALINE PHOSPHATASE 121 IU/L (46-116); ANION GAP 19 (8-16); ASPARTATE AMINO TRANSFERASE 30 U/L (10-37); BILIRUBIN,TOTAL 0.8 MG/DL (0.1-1.0); BLOOD UREA NITROGEN 19 MG/DL (7-18); BUN/CREATININE RATIO 20.9 (10.0-20.0); CALCIUM 9.3 MG/DL (8.5-10.1); CHLORIDE 101 MMOL/L (99-107); CREATININE 0.91 MG/DL (0.40-0.90); GLUCOSE 143 MG/DL (70-104); SODIUM 137 MMOL/L (135-145); TOTAL CARBON DIOXIDE 17.3 MMOL/L (24-32); TOTAL PROTEIN 8.6 G/DL (6.4-8.2); eGFR 60 ML/MIN
[2022-12-25 19:56] LABS: POTASSIUM 2.6 MMOL/L (3.5-5.1)
[2022-12-25] MEDS: K and/or MAG REPLACEMENT MC SCH (20:00)
[2022-12-25] MEDS ORDERED: diatr meglu/diatrizoate 30ml oral sol.-(3 dose) bottle PO ONE (21:00)
[2022-12-25] MEDS ORDERED: RIVA20TA PO (21:03)
[2022-12-25] MEDS ORDERED: DULA1.5P SQ (21:03)
[2022-12-25] MEDS ORDERED: METO-384 PO (21:03)
[2022-12-25] MEDS ORDERED: MEMA10TA PO (21:03)
[2022-12-25] MEDS ORDERED: INSU200I4 SQ (21:03)
[2022-12-25] MEDS ORDERED: ROSU20TA2 PO (21:03)
--- NOTE | 2022-12-25 21:32 | NUR ---
Report received, given by Dalia MACIAS.
[2022-12-25] MEDS: normal saline 1000ml 1,000 ML IV SCH (21:44)
[2022-12-25 22:00] VITALS: BP 161/98
[2022-12-25] MEDS ORDERED: DEXTROSE 15 GM of carb/4 tabs (each vial/BOTTLE has 4 tablets) PO PRN ×2 (22:15)
[2022-12-25] MEDS ORDERED: dextrose 50%-water 50ml dispensing syringe IV PRN ×2 (22:15)
[2022-12-25] MEDS ORDERED: MESSAGE TO PHARMACY PO ONE (22:15)
[2022-12-25] MEDS ORDERED: glucagon, human recombinant 1mg kit SUBCUT PRN (22:15)
[2022-12-25] MEDS ORDERED: insulin Lispro (HumaLOG) vial - multi-dose SQ SCH (22:15)
--- NOTE | 2022-12-25 22:26 | NUR ---
1st dose of gastroview given, patient immediatly vomited and continues to be nauseas
--- NOTE | 2022-12-25 23:09 | NUR ---
lactic 5.7/up from 5.3. Dr Chirinos notified and aware. No new orders at this time.
[2022-12-26] VITALS (24 sets, daily range): BP systolic 83–156; BP diastolic 9–100
[2022-12-26] MEDS: potassium Cl 40MEQ/1/2NS 520ml 520 ML IV SCH (00:32)
--- NOTE | 2022-12-26 02:19 | NUR ---
Dr Chirinos notified of increasing lactic acid @ 7.6. He wants a new lactic ordered at 0400 and to start cipro and flagyl which i have ordered the requested doses.
[2022-12-26] MEDS: metroNIDAZOLE-Flagyl 500mg/NS 100 ML IV SCH ×3 (02:48→16:53)
--- NOTE | 2022-12-26 03:15 | NUR ---
Blood cultures not ordered, new order obtained. First Flagyl stopped at half way in order to get cultures. Then finished flagyl. Unable to get second set of blood cultures due to difficult stick, lab will draw when they arrive. Will dose cipro after cultures.
[2022-12-26] MEDS: ondansetron/PF 4mg/2ml inj IV PRN (03:23)
[2022-12-26] MEDS: diatr meglu/diatrizoate 30ml oral sol.-(3 dose) bottle PO SCH ×3 (03:30→05:15)
--- NOTE | 2022-12-26 03:30 | NUR ---
Mo Addendum: 12/26/22 at 0454 by Maira Rios RN RN saved wrong
[2022-12-26 04:26] LABS: BASOPHILS % (AUTO) 0.1 % (0-1); EOSINOPHILS % (AUTO) 0 % (0-6); HEMATOCRIT 38.5 % (35.0-45.0); HEMOGLOBIN 12.8 g/dl (12.0-16.0); LYMPHOCYTES # (AUTO) 0.9 X10'3 (1.1-4.8); LYMPHOCYTES % (AUTO) 4.5 % (21-51); MEAN CORPUSCULAR HEMOGLOBIN 30.3 PG (27.0-31.0); MEAN CORPUSCULAR HGB CONC 33.3 g/dL (33.0-36.5); MEAN CORPUSCULAR VOLUME 90.9 FL (78-98); MEAN PLATELET VOLUME 7.8 FL (7.4-10.4); MONOCYTES # (AUTO) 0.8 X10'3 (0-0.9); NEUTROPHILS # (AUTO) 18.5 X10'3 (1.8-7.7); NEUTROPHILS % (AUTO) 91.4 % (42-75); PLATELET COUNT 223 X10'3 (140-440); RED BLOOD COUNT 4.23 X10'6 (4.20-5.60); RED CELL DISTRIBUTION WIDTH 13.7 % (11.5-14.5); WHITE BLOOD COUNT 20.2 X10'3 (4.5-11.0)
[2022-12-26 04:38] LABS: ALBUMIN 3.6 G/DL (3.4-5.0); ALKALINE PHOSPHATASE 107 IU/L (46-116); ANION GAP 16 (8-16); ASPARTATE AMINO TRANSFERASE 29 U/L (10-37); BILIRUBIN,TOTAL 0.7 MG/DL (0.1-1.0); BLOOD UREA NITROGEN 18 MG/DL (7-18); BUN/CREATININE RATIO 14.1 (10.0-20.0); CALCIUM 8.6 MG/DL (8.5-10.1); CHLORIDE 103 MMOL/L (99-107); CREATININE 1.28 MG/DL (0.40-0.90); GLUCOSE 370 MG/DL (70-104); MAGNESIUM 2.3 MG/DL (1.5-2.4); POTASSIUM 4.3 MMOL/L (3.5-5.1); SODIUM 137 MMOL/L (135-145); TOTAL CARBON DIOXIDE 18.3 MMOL/L (24-32); TOTAL PROTEIN 7.1 G/DL (6.4-8.2); eGFR 40 ML/MIN
--- NOTE | 2022-12-26 04:43 | NUR ---
Patient has kept 2x dose of gastroview down after the zofran. Talked to Charley from CT and we will plan on bringing her down at 0515 for scan if she keeps last dose down.
--- NOTE | 2022-12-26 04:52 | NUR ---
Dr Chirinos aware of new 7.6 lactic. 0800 lactic lab ordered, redraw K+ also since potassium was running with morning draw.
[2022-12-26] MEDS: normal saline 1000ml 1,000 ML IV SCH ×2 (05:25→15:25)
--- NOTE | 2022-12-26 06:00 | NUR ---
Pt finished CT scan, Dr Chirinos notified Dr Jane of potential concerns with CT
[2022-12-26 06:08] LABS: ALANINE AMINOTRANSFERASE 28 U/L (12-78)
--- NOTE | 2022-12-26 06:37 | NUR ---
Report given to Reta MACIAS and preceptee, patient has sitter now after ripping out iv and ng tube and impulsiveness.
--- NOTE | 2022-12-26 07:05 | NUR ---
RECEIVED REPORT AND ASSUMED CARE OF PATIENT. RAPID RESPONSE CALLED AFTER INITIAL ASSESSMENT OF PATIENT: RR 40 BP 83/54, ALOC, AND AFIB RVR WITH HEART RATE IN THE 130S, AND A LACTIC ACID OF 7.6. IMMEDIATELY NOTIFIED DR MARCANO WHO WAS STILL ON FROM NOC SHIFT. HE CAME TO BEDSIDE AND AGREED FOR AN IMMEDIATE TRANSFER TO THE ICU. CT SCAN RESULTS SHOW A HIGH GRADE OBSTRUCTION. REPORTED OFF TO GALDINO MACIAS IN THE ICU. PT LEFT IN HER BED AT 0735 TO ICU
[2022-12-26] MEDS ORDERED: normal saline 1000ml 1,000 ML IV STA (07:10)
[2022-12-26] MEDS ORDERED: normal saline 1000ml 1,000 ML IV ONE (07:10)
--- NOTE | 2022-12-26 07:30 | NUR ---
Patient in room ICU 2040. I have received report from Zenia MACIAS and Hair MONTERROSO and had the opportunity to ask questions and assume patient care.
[2022-12-26] MEDS ORDERED: ringers solution, lacted 1,000 ML IV ONE ×3 (07:55)
[2022-12-26] MEDS: ciprofloxacin lact 400MG/200ML 200 ML IV SCH ×2 (08:00→21:06)
[2022-12-26] MEDS: K and/or MAG REPLACEMENT MC SCH ×2 (08:00→20:00)
[2022-12-26] MEDS ORDERED: NORepinephrine 8mg/ 250ml NS 250 ML IV ONE (08:14)
[2022-12-26] MEDS: NORepinephrine 8mg/ 250ml NS 250 ML IV SCH (08:20)
[2022-12-26 08:21] LABS: ABG BASE EXCESS -10.9 mmol/L (-2.0-2.0); ABG HCO3 13.6 mmol/L (22.0-26.0); ABG OXYGEN SATURATION 99.4 % (94-97); ABG PCO2 (T) 24.6 mmHg (32.0-45.0); ABG PO2 (T) 431.7 mmHg (75.0-100.0); ALLEN'S TEST POSITIVE; FCOHb 0.2 % (0.0-3.9); FLOW 15 L/min; FMetHb 0.3 % (0.0-1.5); FO2Hb 98.9 % (94-97); TOTAL HEMOGLOBIN 11.4 G/dl (12.0-16.0)
[2022-12-26] MEDS ORDERED: sodium bicarbonate (8.4%) 1 mEq/ml syringe IV ONE ×2 (08:25→10:05)
[2022-12-26] MEDS ORDERED: SODIUM BICARB 150mEq/D5W 1L 1,000 ML IV SCH (08:25)
[2022-12-26] MEDS ORDERED: cefepime 2g/NS 100ml ADVANTAGE 100 ML IV STA (08:29)
--- NOTE | 2022-12-26 08:29 | NUR ---
DURING RAPID RESPONSE, ONE LITER WAS RAPIDLY INFUSED VIA PRESSURE BAG. NORMAL SALINE WAS INFUSED Addendum: 12/26/22 at 0841 by Kristine Alonso RN PER DR MARCANO
[2022-12-26] MEDS ORDERED: sodium bicarbonate (8.4%) inj. 1 MEQ/ML ML IV ONE (08:35)
[2022-12-26] MEDS ORDERED: amiodarone 150mg/dext, iso-os 100 ML IV ONE (08:55)
[2022-12-26] MEDS: sodium bicarbonate (8.4%) inj. 150 MEQ in dextrose 5%-water 850 ML IV SCH ×2 (09:00→21:06)
[2022-12-26] MEDS: amiodarone/D5 360MG/200ML BAG 200 ML IV SCH ×3 (09:06→21:02)
[2022-12-26] MEDS ORDERED: LIDOcaine 1% (10mg/ml) 2ml vial ONE (09:33)
[2022-12-26] MEDS ORDERED: sevoflurane 250ml liquid IH ONE (10:25)
[2022-12-26] MEDS ORDERED: sodium bicarbonate (8.4%) 1 mEq/ml syringe ONE (10:25)
[2022-12-26] MEDS ORDERED: NORepinephrine 8 MG in NS 250 ML BAG (32 mcg/ml) IV ONE (10:25)
[2022-12-26] MEDS ORDERED: midazolam 1 mg/ML 2ml injection ONE (10:29)
[2022-12-26] MEDS ORDERED: fentaNYL /PF 50mcg/ml 5ml ampule ONE (10:29)
[2022-12-26 11:51] LABS: ABG BASE EXCESS -6.3 mmol/L (-2.0-2.0); ABG HCO3 17.5 mmol/L (22.0-26.0); ABG PCO2 (T) 27.7 mmHg (32.0-45.0); FCOHb 0.2 % (0.0-3.9); FMetHb 0.6 % (0.0-1.5); FO2Hb 98.2 % (94-97); TOTAL HEMOGLOBIN 8.9 G/dl (12.0-16.0)
[2022-12-26] MEDS ORDERED: rocuronium 10mg/ml inj IV ONE (11:51)
[2022-12-26] MEDS ORDERED: etomidate 2mg/ml inj. ONE (11:51)
[2022-12-26] MEDS ORDERED: albumin (Human) 5% 250ml 250 ML IV ONE ×2 (11:51→12:05)
[2022-12-26] MEDS: Insulin Reg/NS 100units/100mL 100 ML IV SCH ×2 (12:05→21:11)
--- NOTE | 2022-12-26 12:28 | NUR ---
Received from OR via ICU BED DIRECTLY TO THE ICU , accompanied by Anesthesiologist ROSEANN and report given by Anesthesiolgist. PATIENT WITH TRIPLE LUMEN CENTRAL LINE TO RIGHT SIDE OF NECK. 2 20G PIVS IN LEFT UE. ART LINE IN RIGHT UE. SCDS DONNED BLIATERALLY. VENTILATED VIA RT. 3"FOAM TAPE DRESSING TO ABDOMEN. PATIENT WITH NO DRAINAGE PRESENT AT THIS TIME. PATIENT ABDOMEN SOFT AROUND DRESSING AND NO SIGNS OF BLEEDING AT THIS TIME. XRAY DONE. VSS AT THIS TIME. Addendum: 12/26/22 at 1301 by Alvaro Bailey RN RN Amended: Links added.
[2022-12-26] MEDS: propofol 1000mg/100ml bottle 100 ML IV SCH (12:40)
--- NOTE | 2022-12-26 13:18 | NUR ---
REPORT GIVEN AND ALL QUESTIONS ANSWERED. PATIENT TRANSFERRED TO SURG/ORTHO PCU ICU. BELONGINGS PRESENT IN ROOM. RN GALDINO PRESENT ALL CRITERIA FOR TRANSFER CARE OVER TO THE ICU. (PATIENT RECOVERED IN THE ICU) . VSS. PAIN AT A TOLERABLE LEVEL. BED LOW, CALL LIGHT PRESENT AND 2 RAILS DOWN. RN AWARE THAT PATIENT HAS ARRIVED.GALDINO PRESENT TO ACCEPT CARE OF PATIENT AND ASSESS ABDOMINAL AREA AND ALL PATIENT LINES. CARE TURNED OVER AT THIS TIME. Addendum: 12/26/22 at 1329 by Alvaro Bailey RN, RN Amended: Links added.
[2022-12-26 13:34] LABS: APTT 29 SECONDS (22-32)
[2022-12-26 13:55] LABS: ALANINE AMINOTRANSFERASE 26 U/L (12-78); ALBUMIN 2.4 G/DL (3.4-5.0); ALBUMIN/GLOBULIN RATIO 1.2 (1.1-1.5); ALKALINE PHOSPHATASE 55 IU/L (46-116); ANION GAP 10 (8-16); ASPARTATE AMINO TRANSFERASE 20 U/L (10-37); BILIRUBIN,TOTAL 0.6 MG/DL (0.1-1.0); BLOOD UREA NITROGEN 18 MG/DL (7-18); BUN/CREATININE RATIO 22.2 (10.0-20.0); CALCIUM 7.6 MG/DL (8.5-10.1); CHLORIDE 107 MMOL/L (99-107); CREATININE 0.81 MG/DL (0.40-0.90); GLUCOSE 306 MG/DL (70-104); MAGNESIUM 1.5 MG/DL (1.5-2.4); PHOSPHORUS 2.7 MG/DL (2.3-4.5); POTASSIUM 3.7 MMOL/L (3.5-5.1); SODIUM 137 MMOL/L (135-145); TOTAL CARBON DIOXIDE 20.4 MMOL/L (24-32); TOTAL PROTEIN 4.4 G/DL (6.4-8.2); eGFR 68 ML/MIN
[2022-12-26] MEDS ORDERED: cefepime 2g/NS 100ml ADVANTAGE 100 ML IV SCH (16:00)
[2022-12-26 17:03] LABS: ABG BASE EXCESS -2.6 mmol/L (-2.0-2.0); ABG HCO3 21.2 mmol/L (22.0-26.0); ABG OXYGEN SATURATION 98.2 % (94-97); ABG PCO2 (T) 30.6 mmHg (32.0-45.0); ABG PO2 (T) 138.1 mmHg (75.0-100.0); FCOHb 0.3 % (0.0-3.9); FMetHb 0.4 % (0.0-1.5); FO2Hb 97.5 % (94-97); PATIENT TEMPERATURE 35.6; PEEP 5 cm H2O; RESPIRATORY RATE 12 b/min; TIDAL VOLUME 500 mL; TOTAL HEMOGLOBIN 8.8 G/dl (12.0-16.0)
--- NOTE | 2022-12-26 17:14 | NUR ---
Attempted to call Dr Kat [phone] no answer and the voice mail box is full. Unable to leave a message
--- NOTE | 2022-12-26 17:48 | NUR ---
Dr Kat by to round on patient reviewed ABG new orders continue bicarb drip till tomorrow decrease tidal volume to 350 300mls of 25% albumin now 5% albumin gtt at 75mls /hr
[2022-12-26] MEDS ORDERED: albumin (human) 25% 100 ML IV solution IV ONE ×2 (17:50→18:55)
[2022-12-26] MEDS: FENTANYL-0.9 % NACL/PF 100 ML IV PRN (18:48)
[2022-12-26] MEDS ORDERED: albumin (human) 25% 100ml IV 500 ML IV SCH (20:00)
[2022-12-26] MEDS: albumin (Human) 5% 250ml 250 ML IV SCH (21:05)
[2022-12-27] VITALS (40 sets, daily range): BP systolic 49–131; BP diastolic 40–76
[2022-12-27] MEDS: normal saline 1000ml 1,000 ML IV SCH ×3 (00:01→21:25)
[2022-12-27] MEDS: albumin (Human) 5% 250ml 250 ML IV SCH ×7 (00:05→22:30)
[2022-12-27] MEDS: propofol 1000mg/100ml bottle 100 ML IV SCH ×3 (00:21→21:12)
[2022-12-27] MEDS: metroNIDAZOLE-Flagyl 500mg/NS 100 ML IV SCH ×3 (00:50→15:50)
[2022-12-27] MEDS: FENTANYL-0.9 % NACL/PF 100 ML IV PRN ×4 (02:10→23:00)
[2022-12-27] MEDS: amiodarone/D5 360MG/200ML BAG 200 ML IV SCH ×4 (03:07→21:19)
[2022-12-27] MEDS: NORepinephrine 8mg/ 250ml NS 250 ML IV SCH ×2 (03:24→23:28)
[2022-12-27 03:38] LABS: ABG HCO3 30.6 mmol/L (22.0-26.0); ABG OXYGEN SATURATION 98.6 % (94-97); ABG PCO2 (T) 45.6 mmHg (32.0-45.0); ABG PO2 (T) 163.2 mmHg (75.0-100.0); FCOHb 0.3 % (0.0-3.9); FMetHb 0.5 % (0.0-1.5); FO2Hb 97.8 % (94-97); PATIENT TEMPERATURE 36.9; RESPIRATORY RATE 12 b/min; TIDAL VOLUME 350 mL; TOTAL HEMOGLOBIN 6.1 G/dl (12.0-16.0)
[2022-12-27 03:44] LABS: BASOPHILS % (AUTO) 0.1 % (0-1); EOSINOPHILS % (AUTO) 0 % (0-6); LYMPHOCYTES # (AUTO) 0.8 X10'3 (1.1-4.8); LYMPHOCYTES % (AUTO) 12.8 % (21-51); MEAN CORPUSCULAR HEMOGLOBIN 30.8 PG (27.0-31.0); MEAN CORPUSCULAR HGB CONC 34.3 g/dL (33.0-36.5); MEAN PLATELET VOLUME 7.6 FL (7.4-10.4); MONOCYTES # (AUTO) 0.3 X10'3 (0-0.9); MONOCYTES % (AUTO) 5.2 % (2-12); NEUTROPHILS # (AUTO) 5.3 X10'3 (1.8-7.7); NEUTROPHILS % (AUTO) 81.9 % (42-75); PLATELET COUNT 68 X10'3 (140-440); RED BLOOD COUNT 1.79 X10'6 (4.20-5.60); RED CELL DISTRIBUTION WIDTH 13.4 % (11.5-14.5); WHITE BLOOD COUNT 6.5 X10'3 (4.5-11.0)
[2022-12-27 03:59] LABS: ALANINE AMINOTRANSFERASE 19 U/L (12-78); ALBUMIN 3.3 G/DL (3.4-5.0); ALBUMIN/GLOBULIN RATIO 2.2 (1.1-1.5); ALKALINE PHOSPHATASE 35 IU/L (46-116); ANION GAP 4 (8-16); ASPARTATE AMINO TRANSFERASE 18 U/L (10-37); BILIRUBIN,TOTAL 0.5 MG/DL (0.1-1.0); BLOOD UREA NITROGEN 16 MG/DL (7-18); BUN/CREATININE RATIO 24.6 (10.0-20.0); CALCIUM 7.4 MG/DL (8.5-10.1); CHLORIDE 107 MMOL/L (99-107); CREATININE 0.65 MG/DL (0.40-0.90); GLUCOSE 119 MG/DL (70-104); MAGNESIUM 1.6 MG/DL (1.5-2.4); POTASSIUM 3.5 MMOL/L (3.5-5.1); SODIUM 139 MMOL/L (135-145); TOTAL CARBON DIOXIDE 28.4 MMOL/L (24-32); TOTAL PROTEIN 4.8 G/DL (6.4-8.2); TRIGLYCERIDES 16 MG/DL (20-135); eGFR 88 ML/MIN
[2022-12-27 04:07] LABS: HEMATOCRIT 16.1 % (35.0-45.0); HEMOGLOBIN 5.5 g/dl (12.0-16.0)
[2022-12-27] MEDS: sodium bicarbonate (8.4%) inj. 150 MEQ in dextrose 5%-water 850 ML IV SCH (05:00)
--- NOTE | 2022-12-27 06:23 | NUR ---
Problems reprioritized. Patient report given, questions answered & plan of care reviewed with GILBERTO Cespedes.
--- NOTE | 2022-12-27 06:30 | NUR ---
Patient in room ICU 2040. I have received report from Daniel MACIAS and had the opportunity to ask questions and assume patient care.
[2022-12-27 06:55] LABS: PHOSPHORUS 1.8 MG/DL (2.3-4.5)
[2022-12-27] MEDS: K and/or MAG REPLACEMENT MC SCH ×2 (08:00→19:39)
[2022-12-27] MEDS: ciprofloxacin lact 400MG/200ML 200 ML IV SCH ×2 (08:50→19:44)
[2022-12-27] MEDS: cefepime 2g/NS 100ml ADVANTAGE 100 ML IV SCH ×2 (08:50→19:44)
[2022-12-27] MEDS ORDERED: digoxin 250mcg/ml 2ml ampule IV ONE ×3 (09:05→21:00)
[2022-12-27] MEDS ORDERED: pantoprazole 40mg IV 40 MG in normal saline 100ml IV soln 100 ML IV ONE (09:05)
[2022-12-27] MEDS ORDERED: Neutra Phos packet PO PRN (09:10)
[2022-12-27] MEDS ORDERED: potassium Cl 20 mEq SR tablet PO PRN ×2 (09:10)
[2022-12-27] MEDS ORDERED: sodium phosphate inj. 30 MMOL in dextrose 5%-water 250 ML IV PRN (09:10)
[2022-12-27] MEDS ORDERED: sodium phosphate inj. 15 MMOL in dextrose 5%-water 250 ML IV PRN (09:10)
[2022-12-27] MEDS ORDERED: magnesium 4gm in 100ml NS 100 ML IV PRN (09:10)
[2022-12-27] MEDS ORDERED: magnesium 2GM in 50ml NS 50 ML IV PRN (09:10)
[2022-12-27] MEDS ORDERED: glucagon, human recombinant 1mg kit SUBCUT PRN (09:25)
[2022-12-27] MEDS ORDERED: MESSAGE TO PHARMACY PO ONE (09:25)
[2022-12-27] MEDS ORDERED: dextrose 50%-water 50ml dispensing syringe IV PRN ×2 (09:25)
[2022-12-27] MEDS ORDERED: DEXTROSE 15 GM of carb/4 tabs (each vial/BOTTLE has 4 tablets) PO PRN ×2 (09:25)
[2022-12-27 09:44] LABS: BASOPHILS % (AUTO) 0.1 % (0-1); EOSINOPHILS % (AUTO) 0 % (0-6); HEMATOCRIT 23.1 % (35.0-45.0); HEMOGLOBIN 7.9 g/dl (12.0-16.0); LYMPHOCYTES # (AUTO) 0.8 X10'3 (1.1-4.8); LYMPHOCYTES % (AUTO) 9.5 % (21-51); MEAN CORPUSCULAR HGB CONC 34.4 g/dL (33.0-36.5); MEAN CORPUSCULAR VOLUME 90.2 FL (78-98); MONOCYTES # (AUTO) 0.5 X10'3 (0-0.9); MONOCYTES % (AUTO) 6.2 % (2-12); NEUTROPHILS # (AUTO) 6.9 X10'3 (1.8-7.7); NEUTROPHILS % (AUTO) 84.2 % (42-75); PLATELET COUNT 68 X10'3 (140-440); RED BLOOD COUNT 2.55 X10'6 (4.20-5.60); RED CELL DISTRIBUTION WIDTH 14.7 % (11.5-14.5); WHITE BLOOD COUNT 8.2 X10'3 (4.5-11.0)
[2022-12-27] MEDS ORDERED: pantoprazole 40MG/NS 100ML BAG 100 ML IV ONE (09:50)
[2022-12-27 09:55] LABS: APTT 40 SECONDS (22-32)
[2022-12-27] MEDS ORDERED: sodium phosphate inj. 15 MMOL in dextrose 5%-water 250 ML IV ONE (10:10)
[2022-12-27 10:30] LABS: PLATELET ESTIMATE DECREASED; TOTAL CELLS COUNTED 100
--- NOTE | 2022-12-27 11:37 | NUR ---
DM consult: Per EMR pt with T2DM, well controlled with A1c 6.3% which is down from 10.4% 03/17/22 per EMR. DM education not warranted at this time. Pt presented with c/o abdominal pain and admit for closed loop internal hernia with necrotic bowel and septic shock. Pt currently intubated POD # 1 s/p exploratory laparotomy with removal of approximately three feet of jejunum. Pt remains NPO with an NGT in place to suction and no plans to initiate nutrition support at this time though pt would benefit from TPN if expected prolonged NPO/insufficient diet order. Propofol visualized at bedside to be running at 6.13 mL/hr providing 162 kcal/day. Will continue to follow closely. Recommendations: 1) Initiate TPN if expected prolonged NPO/insufficient diet order pending return of bowel function 2) Advance to low fiber diet as medically indicated following extubation 3) Bowel care per physician 4) Daily scaled weights Addendum: 12/27/22 at [address] Amended: Links added.
[2022-12-27] MEDS ORDERED: metoprolol tartrate 1mg/ml inj IV ONE (12:40)
[2022-12-27] MEDS: insulin Lispro (HumaLOG) vial - multi-dose SQ SCH (14:21)
[2022-12-27] MEDS: metoprolol tartrate 1mg/ml inj IV SCH ×2 (15:50→19:44)
--- NOTE | 2022-12-27 17:23 | NUR ---
Sedated with Fentanyl & Propofol for comfort and vent synchrony. Remains in atrial fib. Cont on Amiodarone. Med with Digoxin with Metoprolol with HR decreasing from 140-160 to 80 - 100's. BP stable. Sats mid 90's on 25% FiO2. Scant green drainage from NG tube. UO marginal. Received 2 units PRBC's for Hgb 5.5. Repeat Hgb 7.9.
--- NOTE | 2022-12-27 18:09 | NUR ---
Problems reprioritized. Patient report given, questions answered & plan of care reviewed with Da MACIAS.
[2022-12-27] MEDS: insulin glargine (Lantus) pen - multi-dose SQ SCH (20:16)
--- NOTE | 2022-12-27 23:22 | NUR ---
Rounds done with tele MD Dr. Johnson. All care/assessments/vitals/labs reviewed. Nothing to add to her care tonight. Try not to increase sedation in anticipation of extubation. NPO, deferred Tube feeding to surgery team, glucose control adequate on hyperglycemia protocol.
[2022-12-28] VITALS (29 sets, daily range): BP systolic 100–170; BP diastolic 45–97
[2022-12-28] MEDS: metroNIDAZOLE-Flagyl 500mg/NS 100 ML IV SCH ×4 (00:11→23:59)
[2022-12-28] MEDS: metoprolol tartrate 1mg/ml inj IV SCH ×7 (00:11→23:59)
[2022-12-28] MEDS: albumin (Human) 5% 250ml 250 ML IV SCH ×7 (00:56→20:50)
[2022-12-28 01:02] LABS: BASOPHILS # (AUTO) 0.1 X10'3 (0-0.2); BASOPHILS % (AUTO) 1.9 % (0-1); EOSINOPHILS % (AUTO) 0.2 % (0-6); HEMATOCRIT 22.6 % (35.0-45.0); HEMOGLOBIN 7.6 g/dl (12.0-16.0); LYMPHOCYTES # (AUTO) 0.5 X10'3 (1.1-4.8); LYMPHOCYTES % (AUTO) 6.2 % (21-51); MEAN CORPUSCULAR HEMOGLOBIN 30.4 PG (27.0-31.0); MEAN CORPUSCULAR HGB CONC 33.6 g/dL (33.0-36.5); MEAN CORPUSCULAR VOLUME 90.7 FL (78-98); MONOCYTES # (AUTO) 0.3 X10'3 (0-0.9); MONOCYTES % (AUTO) 4.4 % (2-12); NEUTROPHILS # (AUTO) 6.7 X10'3 (1.8-7.7); NEUTROPHILS % (AUTO) 87.3 % (42-75); PLATELET COUNT 64 X10'3 (140-440); RED BLOOD COUNT 2.49 X10'6 (4.20-5.60); RED CELL DISTRIBUTION WIDTH 14.8 % (11.5-14.5); WHITE BLOOD COUNT 7.7 X10'3 (4.5-11.0)
[2022-12-28 01:22] LABS: ALANINE AMINOTRANSFERASE 20 U/L (12-78); ALBUMIN 3.5 G/DL (3.4-5.0); ALBUMIN/GLOBULIN RATIO 2.5 (1.1-1.5); ALKALINE PHOSPHATASE 39 IU/L (46-116); ANION GAP 5 (8-16); ASPARTATE AMINO TRANSFERASE 31 U/L (10-37); BILIRUBIN,TOTAL 0.6 MG/DL (0.1-1.0); BLOOD UREA NITROGEN 12 MG/DL (7-18); BUN/CREATININE RATIO 19.7 (10.0-20.0); CALCIUM 7.2 MG/DL (8.5-10.1); CHLORIDE 106 MMOL/L (99-107); CREATININE 0.61 MG/DL (0.40-0.90); GLUCOSE 156 MG/DL (70-104); MAGNESIUM 1.7 MG/DL (1.5-2.4); POTASSIUM 3.9 MMOL/L (3.5-5.1); SODIUM 138 MMOL/L (135-145); TOTAL CARBON DIOXIDE 27.4 MMOL/L (24-32); TOTAL PROTEIN 4.9 G/DL (6.4-8.2); eGFR > 90 ML/MIN
[2022-12-28] MEDS: normal saline 1000ml 1,000 ML IV SCH (02:02)
[2022-12-28] MEDS: amiodarone/D5 360MG/200ML BAG 200 ML IV SCH ×4 (02:02→21:35)
[2022-12-28 03:07] LABS: ABG BASE EXCESS -3.4 mmol/L (-2.0-2.0); ABG HCO3 21.9 mmol/L (22.0-26.0); ABG OXYGEN SATURATION 94.8 % (94-97); ABG PCO2 (T) 40.1 mmHg (32.0-45.0); ABG PO2 (T) 80.6 mmHg (75.0-100.0); FCOHb 0.3 % (0.0-3.9); FMetHb 0.6 % (0.0-1.5); FO2Hb 93.9 % (94-97); PATIENT TEMPERATURE 36.9; PEEP 5 cm H2O; RESPIRATORY RATE 12 b/min; TIDAL VOLUME 350 mL; TOTAL HEMOGLOBIN 8.2 G/dl (12.0-16.0)
[2022-12-28 03:34] LABS: PLATELET ESTIMATE DECREASED
[2022-12-28 03:35] LABS: ANISOCYTOSIS FEW; ELLIPTOCYTES FEW; POIKILOCYTOSIS FEW
[2022-12-28] MEDS: FENTANYL-0.9 % NACL/PF 100 ML IV PRN (05:56)
[2022-12-28] MEDS: propofol 1000mg/100ml bottle 100 ML IV SCH (05:59)
[2022-12-28] MEDS: K and/or MAG REPLACEMENT MC SCH ×2 (06:35→20:00)
[2022-12-28] MEDS: cefepime 2g/NS 100ml ADVANTAGE 100 ML IV SCH ×2 (07:50→20:07)
[2022-12-28] MEDS: ciprofloxacin lact 400MG/200ML 200 ML IV SCH ×2 (07:51→20:07)
[2022-12-28] MEDS: pantoprazole 40MG/NS 100ML BAG 100 ML IV SCH (07:51)
[2022-12-28] MEDS: insulin Lispro (HumaLOG) vial - multi-dose SQ SCH ×3 (08:15→20:17)
[2022-12-28] MEDS ORDERED: furosemide 40mg/4ml inj IV ONE ×2 (09:00→14:40)
[2022-12-28] MEDS ORDERED: metoprolol tartrate 1mg/ml inj IV ONE (09:00)
--- NOTE | 2022-12-28 10:40 | NUR ---
Pt on spontaneous breathing trial x 2 hours bakari well without apnea or destaturation. Passed weaning parameters. Extubated to 3L n/c. Bakari well.
[2022-12-28] MEDS ORDERED: HYDROmorphone 1 mg/ml syringe IV PRN (12:45)
[2022-12-28] MEDS ORDERED: HYDROmorphone inj. 0.5 MG/0.5 ML DISP.SYRIN IV PRN (12:45)
[2022-12-28] MEDS: NORepinephrine 8mg/ 250ml NS 250 ML IV SCH (14:49)
--- NOTE | 2022-12-28 14:59 | NUR ---
Pt's voice very quiet. Weak cough. States she can't breath. Crackles bilaterally. Sats still in high 90's. Med again with Lasix.
[2022-12-28 16:09] LABS: ALBUMIN 4.5 G/DL (3.4-5.0); ANION GAP 8 (8-16); BLOOD UREA NITROGEN 12 MG/DL (7-18); CALCIUM 8.3 MG/DL (8.5-10.1); CHLORIDE 100 MMOL/L (99-107); GLUCOSE 180 MG/DL (70-104); SODIUM 137 MMOL/L (135-145); TOTAL CARBON DIOXIDE 28.7 MMOL/L (24-32); eGFR 69 ML/MIN
[2022-12-28 16:10] LABS: POTASSIUM 2.8 MMOL/L (3.5-5.1)
[2022-12-28] MEDS ORDERED: potassium Cl 40MEQ/270ML bag 270 ML IV ONE ×2 (16:15→18:15)
[2022-12-28 16:22] LABS: MAGNESIUM 1.5 MG/DL (1.5-2.4)
--- NOTE | 2022-12-28 17:35 | NUR ---
Pt drowsy but awakens easily. Voice continues very quiet. Weak cough. Good UO after Lasix given. Lungs clearer. No dyspnea noted. Replacing K and Mag.
[2022-12-28] MEDS: acetaminophen 1,000mg/100ml IV 100 ML IV PRN (18:28)
--- NOTE | 2022-12-28 18:30 | NUR ---
Pt extubated today to NC and satting well on 3L. She is pleasant but seems to have a very flat affect at the moment and confused though she will follow simple command. She got lasix x2 doses and NS drip was stopped but remains on albumin drip. She sounds wet and has poor cough and poor secretion/sputum clearance, encouraging pulmonary toilet via cough and deep breathing. Her HR is < 100, metoprolol increased today, norepi weaned off with good blood pressures off sedation now. UO was very responsive to lasix but appears to be tapering back down, had 5L output on dayshift. No BM, no bowels sounds heard at this time. NGT still to LIS. Blood sugars controlled on hyperglycemia protocol though titrating up in levels. I spoke at length with the son and daughter of the pt at bedside about plan of care tonight including frequent re-orientation, pain control, pulmonary toilet and hopefully sleep hygiene so pt does become anymore confused.
[2022-12-28] MEDS: insulin glargine (Lantus) pen - multi-dose SQ SCH (20:18)
[2022-12-28 21:36] LABS: MAGNESIUM 1.9 MG/DL (1.5-2.4); POTASSIUM 3.4 MMOL/L (3.5-5.1)
[2022-12-28 21:54] LABS: PHOSPHORUS 1.1 MG/DL (2.3-4.5)
[2022-12-28] MEDS: potassium Cl 40MEQ/270ML bag 270 ML IV PRN (22:27)
--- NOTE | 2022-12-28 23:00 | NUR ---
Nursing cage supervisor asked to supply a patient sitter. Despite frequent re-orientation she continues to be confused and intermittently grabs at things such as her Central Line or NGT. Currently myself or the charge nurse are sitting right outside the room as able to ensure she does not pull anything out.
[2022-12-29] VITALS (23 sets, daily range): BP systolic 112–162; BP diastolic 41–108
[2022-12-29] MEDS: albumin (Human) 5% 250ml 250 ML IV SCH ×3 (00:04→08:14)
--- NOTE | 2022-12-29 00:53 | NUR ---
Josue arrived at 0045, unfortunately the pt managed to get her NGT caught while moving and it was removed. Replaced with a new one in left nare
[2022-12-29] MEDS ORDERED: hydrALAZINE 20mg/ml inj. IV ONE (01:45)
[2022-12-29] MEDS: amiodarone/D5 360MG/200ML BAG 200 ML IV SCH ×3 (01:46→15:47)
[2022-12-29] MEDS: acetaminophen 1,000mg/100ml IV 100 ML IV PRN ×3 (02:10→14:34)
[2022-12-29] MEDS: insulin Lispro (HumaLOG) vial - multi-dose SQ SCH ×3 (02:12→13:49)
[2022-12-29 02:18] LABS: BASOPHILS % (AUTO) 0.1 % (0-1); EOSINOPHILS % (AUTO) 0 % (0-6); HEMATOCRIT 25.1 % (35.0-45.0); HEMOGLOBIN 8.5 g/dl (12.0-16.0); LYMPHOCYTES # (AUTO) 0.7 X10'3 (1.1-4.8); LYMPHOCYTES % (AUTO) 5.3 % (21-51); MEAN CORPUSCULAR HEMOGLOBIN 30.3 PG (27.0-31.0); MEAN CORPUSCULAR HGB CONC 33.7 g/dL (33.0-36.5); MEAN CORPUSCULAR VOLUME 90.1 FL (78-98); MONOCYTES # (AUTO) 0.6 X10'3 (0-0.9); MONOCYTES % (AUTO) 4.3 % (2-12); NEUTROPHILS # (AUTO) 12.7 X10'3 (1.8-7.7); NEUTROPHILS % (AUTO) 90.3 % (42-75); PLATELET COUNT 98 X10'3 (140-440); RED BLOOD COUNT 2.79 X10'6 (4.20-5.60); RED CELL DISTRIBUTION WIDTH 14.6 % (11.5-14.5)
[2022-12-29 02:35] LABS: ALANINE AMINOTRANSFERASE 20 U/L (12-78); ALBUMIN 4.2 G/DL (3.4-5.0); ALBUMIN/GLOBULIN RATIO 2.5 (1.1-1.5); ALKALINE PHOSPHATASE 54 IU/L (46-116); ANION GAP 6 (8-16); ASPARTATE AMINO TRANSFERASE 30 U/L (10-37); BILIRUBIN,TOTAL 1.2 MG/DL (0.1-1.0); BLOOD UREA NITROGEN 13 MG/DL (7-18); BUN/CREATININE RATIO 16.7 (10.0-20.0); CALCIUM 7.9 MG/DL (8.5-10.1); CHLORIDE 104 MMOL/L (99-107); CREATININE 0.78 MG/DL (0.40-0.90); GLUCOSE 180 MG/DL (70-104); POTASSIUM 3.8 MMOL/L (3.5-5.1); SODIUM 138 MMOL/L (135-145); TOTAL CARBON DIOXIDE 27.9 MMOL/L (24-32); TOTAL PROTEIN 5.9 G/DL (6.4-8.2); eGFR 71 ML/MIN
[2022-12-29] MEDS: metoprolol tartrate 1mg/ml inj IV SCH ×6 (04:10→23:56)
[2022-12-29] MEDS: K and/or MAG REPLACEMENT MC SCH ×2 (08:00→20:06)
[2022-12-29] MEDS: metroNIDAZOLE-Flagyl 500mg/NS 100 ML IV SCH ×3 (08:15→23:51)
[2022-12-29] MEDS: ciprofloxacin lact 400MG/200ML 200 ML IV SCH ×2 (08:15→21:15)
[2022-12-29] MEDS: cefepime 2g/NS 100ml ADVANTAGE 100 ML IV SCH ×2 (08:15→19:48)
[2022-12-29] MEDS: pantoprazole 40MG/NS 100ML BAG 100 ML IV SCH (08:15)
[2022-12-29] MEDS ORDERED: furosemide 40mg/4ml inj IV ONE (09:00)
[2022-12-29] MEDS: potassium Cl 40MEQ/270ML bag 270 ML IV PRN (17:12)
--- NOTE | 2022-12-29 17:56 | NUR ---
Report called to GILBERTO Moreno, and patient transferred to room 3014B. Pt. has a right internal jugular central line that was kept in for electrolyte replacement.
[2022-12-29] MEDS: insulin glargine (Lantus) pen - multi-dose SQ SCH (21:12)
[2022-12-30] VITALS (17 sets, daily range): BP systolic 98–159; BP diastolic 62–112
--- NOTE | 2022-12-30 00:12 | NUR ---
PAGER ID: [phone] MESSAGE: [id number] Jennerssantos Robertson transferred from ICU this evening. Only A&O to self, confused, pulled NG tube out and attempting to get out of bed, concern of pulling out other lines and Butler. Please advise.
--- NOTE | 2022-12-30 00:19 | NUR ---
Spoke to DR. May and obtained order for soft restraints to maintain patient safety and patency of IV lines/NG tube and re-inserting new NG tube to intermittent suction.
[2022-12-30] MEDS: ondansetron/PF 4mg/2ml inj IV PRN (00:54)
[2022-12-30] MEDS: amiodarone/D5 360MG/200ML BAG 200 ML IV SCH ×4 (01:47→23:08)
--- NOTE | 2022-12-30 03:18 | NUR ---
Spoke to Dr. May about ordering chest X-ray to confirm placement of NG tube, Chest X-ray ordered.
[2022-12-30] MEDS: metoprolol tartrate 1mg/ml inj IV SCH ×5 (04:13→23:19)
--- NOTE | 2022-12-30 05:00 | NUR ---
X-Ray results showed NG tube in R-Lung, NG tube removed and reinserted into stomach, NG tube hooked onto intermittent suction per MD orders and functioning appropriately at this time. Will continue to monitor.
--- NOTE | 2022-12-30 06:37 | NUR ---
Problems reprioritized. Patient report given, questions answered & plan of care reviewed with Vicki MACIAS.
--- NOTE | 2022-12-30 06:41 | NUR ---
Patient in room PCU 3014. I have received report from GILBERTO GARCIA, and had the opportunity to ask questions and assume patient care.
[2022-12-30] MEDS: normal saline 1000ml 1,000 ML IV SCH (07:25)
[2022-12-30] MEDS: pantoprazole 40MG/NS 100ML BAG 100 ML IV SCH (07:56)
[2022-12-30] MEDS: metroNIDAZOLE-Flagyl 500mg/NS 100 ML IV SCH ×3 (07:57→23:11)
[2022-12-30] MEDS: K and/or MAG REPLACEMENT MC SCH ×2 (08:00→20:00)
[2022-12-30] MEDS: cefepime 2g/NS 100ml ADVANTAGE 100 ML IV SCH ×2 (08:33→23:15)
[2022-12-30] MEDS: ciprofloxacin lact 400MG/200ML 200 ML IV SCH (09:29)
[2022-12-30] MEDS: insulin Lispro (HumaLOG) vial - multi-dose SQ SCH ×2 (10:07→16:26)
[2022-12-30 10:40] LABS: HEMATOCRIT 25.2 % (35.0-45.0); HEMOGLOBIN 8.5 g/dl (12.0-16.0); MEAN CORPUSCULAR HGB CONC 33.7 g/dL (33.0-36.5); WHITE BLOOD COUNT 13.3 X10'3 (4.5-11.0)
[2022-12-30 10:42] LABS: BASOPHILS % (AUTO) 0.1 % (0-1); EOSINOPHILS % (AUTO) 0 % (0-6); LYMPHOCYTES # (AUTO) 0.8 X10'3 (1.1-4.8); LYMPHOCYTES % (AUTO) 5.7 % (21-51); MEAN CORPUSCULAR HEMOGLOBIN 30.6 PG (27.0-31.0); MEAN CORPUSCULAR VOLUME 90.8 FL (78-98); MEAN PLATELET VOLUME 7.6 FL (7.4-10.4); MONOCYTES # (AUTO) 0.8 X10'3 (0-0.9); MONOCYTES % (AUTO) 5.9 % (2-12); NEUTROPHILS # (AUTO) 11.8 X10'3 (1.8-7.7); NEUTROPHILS % (AUTO) 88.3 % (42-75); PLATELET COUNT 133 X10'3 (140-440); RED BLOOD COUNT 2.78 X10'6 (4.20-5.60)
[2022-12-30 10:44] LABS: ALANINE AMINOTRANSFERASE 26 U/L (12-78); ALBUMIN 3.9 G/DL (3.4-5.0); ALBUMIN/GLOBULIN RATIO 2.4 (1.1-1.5); ALKALINE PHOSPHATASE 61 IU/L (46-116); ANION GAP 9 (8-16); ASPARTATE AMINO TRANSFERASE 33 U/L (10-37); BILIRUBIN,TOTAL 1.5 MG/DL (0.1-1.0); BLOOD UREA NITROGEN 21 MG/DL (7-18); BUN/CREATININE RATIO 31.8 (10.0-20.0); CALCIUM 8.1 MG/DL (8.5-10.1); CHLORIDE 105 MMOL/L (99-107); CREATININE 0.66 MG/DL (0.40-0.90); GLUCOSE 180 MG/DL (70-104); SODIUM 140 MMOL/L (135-145); TOTAL CARBON DIOXIDE 26.1 MMOL/L (24-32); TOTAL PROTEIN 5.5 G/DL (6.4-8.2); eGFR 86 ML/MIN
--- NOTE | 2022-12-30 12:14 | NUR ---
PAGE SENT Message: [id number], KURT HERNANDEZ, PT'S RESTRAINT ORDERS NEED TO BE RENEWED. PT STILL UNABLE TO FOLLOW COMMANDS. FAMILY HAS BEEN AT BEDSIDE WATCHING PT. THANK YOU, MARIA DEL CARMEN Merritt [phone] Custom Responses: promotional table spacer Transaction number: [id number]
--- NOTE | 2022-12-30 13:06 | NUR ---
PAGE SENT Message: [id number], KURT HERNANDEZ, LAB RESULTS: DIGOXIN 0.5. THANK YOU, MARIA DEL CARMEN Merritt [id number] Custom Responses: promotional table spacer Transaction number: [id number]
[2022-12-30] MEDS: dextrose 5%-lactated ringers 1,000 ML IV SCH (13:26)
--- NOTE | 2022-12-30 15:31 | NUR ---
F/u 12/30: Pt extubated 30 AM remains NPO w/ NG in place 100-200ml output/day past 2 days per EMR. LBM 12/24 still no flatus per EMR. Pt AOx1/confused w/ dementia hx requiring restraints per EMR. PAULETTE paged MD regarding TPN for nutrition needs if plans to further NPO status given now day 5 essentially no nutrition intake w/ central line in place. Pt is receiving D5/LR at 50ml/hr providing 204 kcals/day. Given poor nutrition status day 5, general severe weakness, and hands non-pitting edema pt meets severe malnutrition criteria; MD notified. Will continue to follow. Recommendations: 1) Initiate TPN if expected prolonged NPO/insufficient diet order pending return of bowel function; day 5 essentially no nutrition 2) Once PO; Advance to low fiber diet as medically indicated per DENTAL ASSISTING INSTRUCTOR/MD recs given confusion 3) Bowel care per physician 4) Daily scaled weights Addendum: 12/30/22 at [address] Amended: Links added.
--- NOTE | 2022-12-30 18:52 | NUR ---
SOFT WRIST RESTRAINTS NOT USED TODAY, FAMILY HAS BEEN AT BEDSIDE ALL DAY, REDIRECTING PT. ORDER IS CURRENT.
--- NOTE | 2022-12-30 18:53 | NUR ---
Problems reprioritized. Patient report given, questions answered & plan of care reviewed with GILBERTO SANTA.
[2022-12-30] MEDS: insulin glargine (Lantus) pen - multi-dose SQ SCH (21:00)
[2022-12-31] VITALS (14 sets, daily range): BP systolic 135–171; BP diastolic 72–97
[2022-12-31] MEDS: metoprolol tartrate 1mg/ml inj IV SCH ×6 (04:37→20:22)
[2022-12-31] MEDS: ondansetron/PF 4mg/2ml inj IV PRN (05:38)
--- NOTE | 2022-12-31 06:32 | NUR ---
Problems reprioritized. Patient report given, questions answered & plan of care reviewed with Vicki MACIAS. Pt stable during shift change.
--- NOTE | 2022-12-31 07:03 | NUR ---
Patient in room PCU 3014. I have received report from GILBERTO SANTA, and had the opportunity to ask questions and assume patient care. PT RESTING COMFORTABLY, NO S/S OF DISTRESS.
[2022-12-31 07:09] LABS: BASOPHILS % (AUTO) 0 % (0-1); EOSINOPHILS % (AUTO) 0.2 % (0-6); HEMATOCRIT 26.2 % (35.0-45.0); HEMOGLOBIN 8.9 g/dl (12.0-16.0); LYMPHOCYTES # (AUTO) 1.3 X10'3 (1.1-4.8); LYMPHOCYTES % (AUTO) 10.5 % (21-51); MEAN CORPUSCULAR HGB CONC 33.9 g/dL (33.0-36.5); MEAN CORPUSCULAR VOLUME 91.3 FL (78-98); MEAN PLATELET VOLUME 7.4 FL (7.4-10.4); MONOCYTES % (AUTO) 7.9 % (2-12); NEUTROPHILS # (AUTO) 10.1 X10'3 (1.8-7.7); NEUTROPHILS % (AUTO) 81.4 % (42-75); PLATELET COUNT 161 X10'3 (140-440); RED BLOOD COUNT 2.86 X10'6 (4.20-5.60); RED CELL DISTRIBUTION WIDTH 15.3 % (11.5-14.5); WHITE BLOOD COUNT 12.4 X10'3 (4.5-11.0)
[2022-12-31 07:20] LABS: ALANINE AMINOTRANSFERASE 25 U/L (12-78); ALBUMIN 3.8 G/DL (3.4-5.0); ALKALINE PHOSPHATASE 63 IU/L (46-116); ANION GAP 8 (8-16); ASPARTATE AMINO TRANSFERASE 24 U/L (10-37); BILIRUBIN,TOTAL 1.2 MG/DL (0.1-1.0); BLOOD UREA NITROGEN 23 MG/DL (7-18); BUN/CREATININE RATIO 32.9 (10.0-20.0); CALCIUM 8.3 MG/DL (8.5-10.1); CHLORIDE 107 MMOL/L (99-107); GLUCOSE 181 MG/DL (70-104); POTASSIUM 3.5 MMOL/L (3.5-5.1); SODIUM 143 MMOL/L (135-145); TOTAL CARBON DIOXIDE 27.8 MMOL/L (24-32); TOTAL PROTEIN 5.7 G/DL (6.4-8.2); eGFR 81 ML/MIN
[2022-12-31] MEDS: K and/or MAG REPLACEMENT MC SCH ×2 (08:00→20:00)
[2022-12-31] MEDS: pantoprazole 40MG/NS 100ML BAG 100 ML IV SCH (08:39)
[2022-12-31] MEDS: metroNIDAZOLE-Flagyl 500mg/NS 100 ML IV SCH ×2 (08:46→16:09)
[2022-12-31] MEDS: insulin Lispro (HumaLOG) vial - multi-dose SQ SCH ×2 (08:57→14:22)
[2022-12-31] MEDS: cefepime 2g/NS 100ml ADVANTAGE 100 ML IV SCH ×2 (09:08→20:23)
[2022-12-31] MEDS: amiodarone/D5 360MG/200ML BAG 200 ML IV SCH (10:34)
[2022-12-31] MEDS: dextrose 5%-lactated ringers 1,000 ML IV SCH (10:35)
[2022-12-31] MEDS ORDERED: heparin, porcine 5000 units/ml vial SQ ONE (12:30)
--- NOTE | 2022-12-31 12:30 | NUR ---
Wound care was asked to see patient regarding her surgical abdominal wound. Patient has an order from her surgeon for moist to moist dressing daily. Nursing needed some direction on how to perform this wound dressing change. I spoke with the RN today and explained how to do this dressing. I offered to use hydrogel to the wound bed and use moistened gauze roll to fill in the wound bed. It is ok to cover with and ABD pad and medipore tape. Nursing able to do dressing changes. I offered to help with the one today and she stated she was going to do it later and had good understanding on how to do dressing change. I looked a the photo in the chart and the wound has good red beefy granulation starting and appears asymptomatic. Wound care is available if any further needs arise.
--- NOTE | 2022-12-31 12:59 | NUR ---
PAGE SENT Message: [id number], KURT HERNANDEZ, A THOUGHT ON THE HEPARIN ORDER. PT HAS A DEEP ABD SURGICAL WOUND, PHOTO IN CHART, SEROSANGUINOUS YESTERDAY, SANGUIOUS TODAY. PLTS 161. HEPARIN NOT GIVEN YET. THANK YOU, MARIA DEL CARMEN [id number] Custom Responses: promotional table spacer Transaction number: [id number]
--- NOTE | 2022-12-31 18:29 | NUR ---
Problems reprioritized. Patient report given, questions answered & plan of care reviewed with GILBERTO SANTA.
[2022-12-31] MEDS: heparin, porcine 5000 units/ml vial SQ SCH (20:21)
[2022-12-31] MEDS: insulin glargine (Lantus) pen - multi-dose SQ SCH (21:00)
[2022-12-31] MEDS ORDERED: furosemide 40mg/4ml inj IV ONE (22:15)
--- NOTE | 2022-12-31 22:25 | NUR ---
Spoke to Dr. Chisholm regarding Pt have edema in bilateral upper extremities. Dr. Chisholm stated he would look at the Pt's chart.
--- NOTE | 2022-12-31 22:35 | NUR ---
New orders give by Dr. Chisholm to get STAT labs on Pt and give a one time dose of Lasix 40mg IV. Nurse obtained labs per orders and gave IV lasix per order.
[2022-12-31 23:36] LABS: CREATINE KINASE 24 U/L (26-192)
[2023-01-01] VITALS (8 sets, daily range): BP systolic 130–167; BP diastolic 65–89
[2023-01-01] MEDS: metoprolol tartrate 1mg/ml inj IV SCH ×6 (00:24→20:46)
[2023-01-01] MEDS: metroNIDAZOLE-Flagyl 500mg/NS 100 ML IV SCH ×3 (00:24→16:52)
[2023-01-01 04:00] LABS: ALANINE AMINOTRANSFERASE 31 U/L (12-78); ALBUMIN 3.3 G/DL (3.4-5.0); ALBUMIN/GLOBULIN RATIO 1.7 (1.1-1.5); ALKALINE PHOSPHATASE 61 IU/L (46-116); ANION GAP 8 (8-16); ASPARTATE AMINO TRANSFERASE 27 U/L (10-37); BILIRUBIN,TOTAL 1.3 MG/DL (0.1-1.0); BLOOD UREA NITROGEN 21 MG/DL (7-18); BUN/CREATININE RATIO 28.8 (10.0-20.0); CALCIUM 7.9 MG/DL (8.5-10.1); CHLORIDE 106 MMOL/L (99-107); CREATININE 0.73 MG/DL (0.40-0.90); GLUCOSE 140 MG/DL (70-104); MAGNESIUM 1.7 MG/DL (1.5-2.4); MEAN PLATELET VOLUME 7.2 FL (7.4-10.4); PHOSPHORUS 1.8 MG/DL (2.3-4.5); SODIUM 144 MMOL/L (135-145); TOTAL PROTEIN 5.2 G/DL (6.4-8.2); eGFR 77 ML/MIN
[2023-01-01 04:02] LABS: BASOPHILS % (AUTO) 0.1 % (0-1); EOSINOPHILS # (AUTO) 0.1 X10'3 (0-0.9); EOSINOPHILS % (AUTO) 1.1 % (0-6); HEMOGLOBIN 8.9 g/dl (12.0-16.0); LYMPHOCYTES # (AUTO) 1.6 X10'3 (1.1-4.8); LYMPHOCYTES % (AUTO) 15.9 % (21-51); MEAN CORPUSCULAR HEMOGLOBIN 30.9 PG (27.0-31.0); MONOCYTES # (AUTO) 0.7 X10'3 (0-0.9); MONOCYTES % (AUTO) 7.4 % (2-12); NEUTROPHILS # (AUTO) 7.6 X10'3 (1.8-7.7); NEUTROPHILS % (AUTO) 75.5 % (42-75); PLATELET COUNT 151 X10'3 (140-440); POTASSIUM 2.9 MMOL/L (3.5-5.1); RED BLOOD COUNT 2.86 X10'6 (4.20-5.60); RED CELL DISTRIBUTION WIDTH 15.2 % (11.5-14.5); WHITE BLOOD COUNT 10.1 X10'3 (4.5-11.0)
--- NOTE | 2023-01-01 04:36 | NUR ---
Nurse notified Provider regarding the critical potassium level of 2.9. Pt already has orders to replace Potassium and pharmacy notified about needing potassium IV, waiting for potassium from pharmacy.
[2023-01-01] MEDS: potassium Cl 40MEQ/270ML bag 270 ML IV PRN ×2 (05:07→07:17)
[2023-01-01] MEDS: dextrose 5%-lactated ringers 1,000 ML IV SCH (05:15)
--- NOTE | 2023-01-01 06:40 | NUR ---
Problems reprioritized. Patient report given, questions answered & plan of care reviewed with Vicki MACIAS. Pt stable at shift change.
--- NOTE | 2023-01-01 06:53 | NUR ---
Patient in room PCU 3014. I have received report from GILBERTO POWELL, and had the opportunity to ask questions and assume patient care. PT RESTING COMFORTABLY, NO NEEDS AT THIS TIME. CALL LIGHT WITHIN REACH. WILL CONTINUE TO MONITOR.
[2023-01-01] MEDS: pantoprazole 40MG/NS 100ML BAG 100 ML IV SCH (07:23)
[2023-01-01] MEDS: cefepime 2g/NS 100ml ADVANTAGE 100 ML IV SCH ×2 (07:43→20:30)
[2023-01-01] MEDS: K and/or MAG REPLACEMENT MC SCH ×2 (08:00→20:00)
[2023-01-01] MEDS: heparin, porcine 5000 units/ml vial SQ SCH ×2 (09:06→20:45)
[2023-01-01] MEDS: insulin Lispro (HumaLOG) vial - multi-dose SQ SCH (09:25)
--- NOTE | 2023-01-01 09:35 | NUR ---
TPN Consult: Pt remains NPO yet to pas gas post-op w/ TPN to start today via central line per MD; recs below. L NG to suction though no output documentation since 12/29 per EMR. Remains on D5/LR at 50ml/hr though likely to wean w/ PN. Will monitor for PN tolerance and further signs of refeeding given severe malnutrition status w/ K and Phos low majority of admit. Recommendations: 1) Continuous TPN per MD via central line using 2:1 Clinimix E 5/20 at 90ml/hr goal w/ separate 100ml 20% ILE to run for 12 hours daily at 8.33ml/hr. In total; to provide 2160ml volume/day, 108g AA, 432g DEX (3.21mg/kg/min), and 2101 kcals/day. 2) Monitor for PN tolerance and signs of refeeding given severe malnutrition status; K/Phos low majority of LOS 3) Wean D5/LR w/ PN advancement per physician discretion 4) TF/PALB Q /; daily scaled wt 5) Once PO; Advance to low fiber diet as medically indicated per ENGINEER FIRST ASSISTANT/MD recs given confusion 6) Bowel care per physician Addendum: 01/01/23 at [address] Amended: Links added.
--- NOTE | 2023-01-01 09:42 | NUR ---
PAGE SENT Message: [id number], KURT HERNANDEZ, BOWEL SOUNDS HEARD IN RUQ AND LLQ. THANK YOU, MARIA DEL CARMEN [phone] Custom Responses: promotional table spacer Transaction number: [id number]
[2023-01-01] MEDS ORDERED: Dextrose 10%-water IV solution 1,000 ML IV PRN (12:00)
--- NOTE | 2023-01-01 13:50 | NUR ---
PAGE SENT Message: [id number], KURT HERNANDEZ, PT AND FAMILY REPORT THAT THE PT IS PASSING GAS. THANK YOU, MARIA DEL CARMEN Merritt [phone] Custom Responses: promotional table spacer Transaction number: [id number]
[2023-01-01] MEDS: ZINC/COPPER/MANGANESE/SELENIUM 1 ML, chromic chloride inj. 10 MCG in AA 5%/CALCIUM/LYTE... IV SCH (14:42)
[2023-01-01] MEDS: MVI, adult No.4 with vit. K 10 ML in dextrose 5% water 500ml 500 ML IV SCH ×2 (14:49)
[2023-01-01] MEDS: fat emulsion 20% inj. 100 ML IV SCH (14:55)
--- NOTE | 2023-01-01 19:14 | NUR ---
Problems reprioritized. Patient report given, questions answered & plan of care reviewed with GILBERTO POWELL.
[2023-01-01] MEDS: insulin regular, human U-100 3ml vial - multi-dose SQ SCH (21:56)
[2023-01-01] MEDS: insulin glargine (Lantus) pen - multi-dose SQ SCH (22:02)
[2023-01-02] MEDS: metroNIDAZOLE-Flagyl 500mg/NS 100 ML IV SCH ×3 (00:21→17:23)
[2023-01-02] MEDS: metoprolol tartrate 1mg/ml inj IV SCH ×6 (00:22→22:44)
[2023-01-02 02:27] VITALS: BP 157/70
[2023-01-02] MEDS: insulin regular, human U-100 3ml vial - multi-dose SQ SCH ×4 (03:18→21:06)
--- NOTE | 2023-01-02 03:30 | NUR ---
Nurse went into pt room to administer medications and noticed pt had machine assembler for puller over her NG tube. Nurse replaced NG tube. Radiology notified for x-ray to assure proper placement.
[2023-01-02 06:00] VITALS: BP 154/67
--- NOTE | 2023-01-02 06:31 | NUR ---
Patient in room PCU 3014. I have received report from GILBERTO Rodriguez and had the opportunity to ask questions and assume patient care.
--- NOTE | 2023-01-02 07:23 | NUR ---
Problems reprioritized. Patient report given, questions answered & plan of care reviewed with Perri MACIAS. Pt stable at shift [facility].
[2023-01-02 07:50] LABS: BASOPHILS % (AUTO) 0.2 % (0-1); EOSINOPHILS # (AUTO) 0.2 X10'3 (0-0.9); EOSINOPHILS % (AUTO) 2.1 % (0-6); HEMATOCRIT 25.1 % (35.0-45.0); HEMOGLOBIN 8.4 g/dl (12.0-16.0); LYMPHOCYTES # (AUTO) 1.2 X10'3 (1.1-4.8); LYMPHOCYTES % (AUTO) 14.7 % (21-51); MEAN CORPUSCULAR HEMOGLOBIN 30.9 PG (27.0-31.0); MEAN CORPUSCULAR HGB CONC 33.7 g/dL (33.0-36.5); MEAN CORPUSCULAR VOLUME 91.9 FL (78-98); MEAN PLATELET VOLUME 7.4 FL (7.4-10.4); MONOCYTES # (AUTO) 0.6 X10'3 (0-0.9); MONOCYTES % (AUTO) 7.1 % (2-12); NEUTROPHILS # (AUTO) 6.1 X10'3 (1.8-7.7); NEUTROPHILS % (AUTO) 75.9 % (42-75); PLATELET COUNT 147 X10'3 (140-440); RED BLOOD COUNT 2.73 X10'6 (4.20-5.60); RED CELL DISTRIBUTION WIDTH 15.1 % (11.5-14.5); WHITE BLOOD COUNT 8.1 X10'3 (4.5-11.0)
[2023-01-02 08:00] LABS: ALANINE AMINOTRANSFERASE 24 U/L (12-78); ALBUMIN 2.7 G/DL (3.4-5.0); ALBUMIN/GLOBULIN RATIO 1.3 (1.1-1.5); ALKALINE PHOSPHATASE 56 IU/L (46-116); ANION GAP 7 (8-16); ASPARTATE AMINO TRANSFERASE 25 U/L (10-37); BILIRUBIN,TOTAL 0.8 MG/DL (0.1-1.0); BLOOD UREA NITROGEN 17 MG/DL (7-18); BUN/CREATININE RATIO 30.4 (10.0-20.0); CALCIUM 7.8 MG/DL (8.5-10.1); CHLORIDE 107 MMOL/L (99-107); CREATININE 0.56 MG/DL (0.40-0.90); GLUCOSE 230 MG/DL (70-104); MAGNESIUM 1.9 MG/DL (1.5-2.4); PHOSPHORUS 2.4 MG/DL (2.3-4.5); SODIUM 140 MMOL/L (135-145); TOTAL CARBON DIOXIDE 25.9 MMOL/L (24-32); TOTAL PROTEIN 4.8 G/DL (6.4-8.2); eGFR > 90 ML/MIN
[2023-01-02 08:04] LABS: POTASSIUM 3.3 MMOL/L (3.5-5.1)
[2023-01-02] MEDS: heparin, porcine 5000 units/ml vial SQ SCH ×2 (08:35→22:43)
[2023-01-02] MEDS: K and/or MAG REPLACEMENT MC SCH ×2 (08:37→20:00)
[2023-01-02] MEDS: pantoprazole 40MG/NS 100ML BAG 100 ML IV SCH (08:50)
--- NOTE | 2023-01-02 10:42 | NUR ---
Reassessment: Per EMR TPN currently running at 30 mL/hr with electrolytes WNL with the exception of slightly low K. Pt with PRN KCl available. TC to clinical pharmacist who states he spoke with bedside RN who reports TPN has already been advanced to goal rate, pending update in EMR. Clinical pharmacist states he will provide K replacement PRN. Per playroom attendant patient pulled the NGT out early this morning though it was replaced. Pt with 400 mL output from NGT 01/01 per EMR. LBM 12/24 per EMR. Will continue to follow closely. Recommendations: 1) Continuous TPN per MD via central line using 2:1 Clinimix-E 11/17 with 90 mL/hr goal rate with separate 100 mL 20% ILE to run for 12 hours daily at 8.33 mL/hr. In total to provide 2160 mL volume/day, 108 g AA, 432 g dext (3.14 mg/kg/min), and 2101 kcal 2) Monitor for PN tolerance and signs of refeeding given severe malnutrition status; K/Phos low majority of LOS 3) TG/PALB q Saturday/ 4) Daily scaled wt 5) Once PO; Advance to low fiber diet as medically indicated per MECHANIC WELDER/MD recs given confusion 6) Bowel care per physician Addendum: 01/02/23 at [address] Amended: Links added.
[2023-01-02 11:00] VITALS: BP 156/67
[2023-01-02] MEDS ORDERED: potassium Cl 40MEQ/270ML bag 270 ML IV ONE (11:00)
[2023-01-02] MEDS: cefepime 2g/NS 100ml ADVANTAGE 100 ML IV SCH ×2 (12:07→22:46)
--- NOTE | 2023-01-02 12:54 | NUR ---
Message: pt in rm 3014B needs a PICC line instead of the R side IJ per infection control. Would you please write an order for a PICC line to be placed on this pt? Then I can get it placed today. Thanks, Perri [phone]
[2023-01-02] MEDS: fat emulsion 20% inj. 100 ML IV SCH (13:56)
[2023-01-02 15:00] VITALS: BP 163/82
[2023-01-02 18:00] VITALS: BP 156/75
--- NOTE | 2023-01-02 18:00 | NUR ---
Patient in room PCU 3014. I have received report from Perri MACIAS and had the opportunity to ask questions and assume patient care.
[2023-01-02 22:00] VITALS: BP 124/88
[2023-01-02] MEDS: insulin glargine (Lantus) pen - multi-dose SQ SCH (22:42)
[2023-01-03] MEDS: metroNIDAZOLE-Flagyl 500mg/NS 100 ML IV SCH ×4 (00:29→23:55)
[2023-01-03] MEDS: ZINC/COPPER/MANGANESE/SELENIUM 1 ML, chromic chloride inj. 10 MCG in AA 5%/CALCIUM/LYTE... IV SCH (00:32)
[2023-01-03 02:00] VITALS: BP 152/95
[2023-01-03] MEDS: insulin regular, human U-100 3ml vial - multi-dose SQ SCH ×3 (02:42→14:13)
[2023-01-03] MEDS: metoprolol tartrate 1mg/ml inj IV SCH ×6 (05:30→21:38)
[2023-01-03 06:15] VITALS: BP 146/96
--- NOTE | 2023-01-03 06:15 | NUR ---
Patient in room U 3014. I have received report from April MACIAS and had the opportunity to ask questions and assume patient care.Pt sleeping. TPN and fluids running, NGT to low INT suction. Call light in hand. Addendum: 01/03/23 at 0706 by Priti Contreras RN Amended: Links added.
--- NOTE | 2023-01-03 06:50 | NUR ---
Problems reprioritized. Patient report given, questions answered & plan of care reviewed with Priti MACIAS.
[2023-01-03] MEDS: pantoprazole 40MG/NS 100ML BAG 100 ML IV SCH (09:20)
[2023-01-03] MEDS: cefepime 2g/NS 100ml ADVANTAGE 100 ML IV SCH ×2 (09:21→21:38)
[2023-01-03] MEDS: heparin, porcine 5000 units/ml vial SQ SCH ×2 (09:25→21:39)
--- NOTE | 2023-01-03 10:49 | NUR ---
PRESSURE ULCER EDUCATION: DEFINITION: A pressure ulcer is an area of skin that breaks down when you stay in one position too long. The constant pressure against the skin reduces the blood flow to that area and the affected tissue dies. CAUSES: "Being bedridden or in a wheelchair "Fragile skin "Having a chronic condition, such as diabetes or vascular disease "Inability to move certain parts of your body without assistance "Older age "Incontinence of urine or stool SYMPTOMS: "A reddened area that DOES NOT turn white when pressed on - this can be the beginning of a pressure ulcer "A blister, deep sore or a crater - these can be advanced pressure ulcers FIRST AID: "Relieve the pressure on this area "Keep the area clean and dry "Call your primary doctor if you see any of the above symptoms "DO NOT massage the area "DO NOT use a donut shaped or ring shaped pillow- these actually interfere with the blood flow and cause complications PREVENTION: "Check for pressure ulcers everyday "Change position at least every two hours to relieve pressure "Use items that help relieve pressure- pillows, sheepskin, foam padding, and powders. "Keep skin clean and dry "Eat healthy well balanced meals "Exercise daily IF YOU SEE ANY OF THESE SYMPTOMS WHILE IN THE HOSPITAL - TELL YOUR NURSE IMMEDIATELY. IF YOU SEE ANY OF THESE SYMPTOMS WHILE AT HOME OR HAVE ANY QUESTIONS OR CONCERNS ABOUT PRESSURE ULCERS - CALL YOUR PRIMARY DOCTOR IMMEDIATELY. Addendum: 01/03/23 at 1049 by Billie Lombardi LVN Amended: Links added.
[2023-01-03 11:00] VITALS: BP 150/78
[2023-01-03] MEDS: K and/or MAG REPLACEMENT MC SCH ×2 (11:00→20:00)
[2023-01-03 11:24] LABS: BASOPHILS % (AUTO) 0.2 % (0-1); EOSINOPHILS # (AUTO) 0.2 X10'3 (0-0.9); EOSINOPHILS % (AUTO) 2.1 % (0-6); HEMATOCRIT 25.7 % (35.0-45.0); HEMOGLOBIN 8.5 g/dl (12.0-16.0); LYMPHOCYTES # (AUTO) 0.8 X10'3 (1.1-4.8); LYMPHOCYTES % (AUTO) 10.9 % (21-51); MEAN CORPUSCULAR HEMOGLOBIN 30.8 PG (27.0-31.0); MEAN CORPUSCULAR HGB CONC 33.2 g/dL (33.0-36.5); MEAN CORPUSCULAR VOLUME 92.7 FL (78-98); MEAN PLATELET VOLUME 7.4 FL (7.4-10.4); MONOCYTES # (AUTO) 0.5 X10'3 (0-0.9); MONOCYTES % (AUTO) 6.8 % (2-12); NEUTROPHILS # (AUTO) 6.1 X10'3 (1.8-7.7); PLATELET COUNT 154 X10'3 (140-440); RED BLOOD COUNT 2.77 X10'6 (4.20-5.60); RED CELL DISTRIBUTION WIDTH 15.7 % (11.5-14.5); WHITE BLOOD COUNT 7.6 X10'3 (4.5-11.0)
[2023-01-03 11:38] LABS: ALANINE AMINOTRANSFERASE 21 U/L (12-78); ALBUMIN 2.9 G/DL (3.4-5.0); ALBUMIN/GLOBULIN RATIO 1.4 (1.1-1.5); ALKALINE PHOSPHATASE 56 IU/L (46-116); ANION GAP 6 (8-16); ASPARTATE AMINO TRANSFERASE 10 U/L (10-37); BILIRUBIN,TOTAL 0.7 MG/DL (0.1-1.0); BLOOD UREA NITROGEN 15 MG/DL (7-18); BUN/CREATININE RATIO 25.9 (10.0-20.0); CALCIUM 7.9 MG/DL (8.5-10.1); CHLORIDE 108 MMOL/L (99-107); CREATININE 0.58 MG/DL (0.40-0.90); GLUCOSE 250 MG/DL (70-104); MAGNESIUM 1.7 MG/DL (1.5-2.4); PHOSPHORUS 2.5 MG/DL (2.3-4.5); POTASSIUM 3.5 MMOL/L (3.5-5.1); PREALBUMIN 13.3 MG/DL (19-36); SODIUM 141 MMOL/L (135-145); TOTAL CARBON DIOXIDE 27.3 MMOL/L (24-32); TRIGLYCERIDES 39 MG/DL (20-135); eGFR > 90 ML/MIN
[2023-01-03] MEDS: fat emulsion 20% inj. 100 ML IV SCH (13:07)
[2023-01-03 15:00] VITALS: BP 172/65
[2023-01-03] MEDS ORDERED: dextrose 50%-water 50ml dispensing syringe IV PRN ×2 (17:50)
[2023-01-03] MEDS ORDERED: glucagon, human recombinant 1mg kit SUBCUT PRN (17:50)
[2023-01-03] MEDS ORDERED: insulin Lispro (HumaLOG) vial - multi-dose SQ SCH (17:50)
[2023-01-03] MEDS ORDERED: DEXTROSE 15 GM of carb/4 tabs (each vial/BOTTLE has 4 tablets) PO PRN ×2 (17:50)
[2023-01-03 18:00] VITALS: BP 147/71
--- NOTE | 2023-01-03 18:15 | NUR ---
Patient in room PCU 3014. I have received report from Priti MACIAS and had the opportunity to ask questions and assume patient care.
--- NOTE | 2023-01-03 18:25 | NUR ---
Problems reprioritized. Patient report given, questions answered & plan of care reviewed with April MACIAS. Pt family at bedside. Pt taking scant sips of dinner. Addendum: 01/03/23 at 1827 by Priti Contreras RN Amended: Links added.
[2023-01-03] MEDS ORDERED: insulin glargine (Lantus) pen - multi-dose SQ SCH (21:00)
[2023-01-03 22:00] VITALS: BP 168/91
[2023-01-04] MEDS: metoprolol tartrate 1mg/ml inj IV SCH ×4 (00:12→11:59)
[2023-01-04 02:00] VITALS: BP 149/78
[2023-01-04 06:00] VITALS: BP 166/86
--- NOTE | 2023-01-04 06:20 | NUR ---
Patient in room PCU 3014. I have received report from April MACIAS and had the opportunity to ask questions and assume patient care.Pt up to [facility]. Continues intermittent confusion and impulsive behavior. Addendum: 01/04/23 at 0622 by Priti Contreras RN Amended: Links added.
--- NOTE | 2023-01-04 06:35 | NUR ---
Problems reprioritized. Patient report given, questions answered & plan of care reviewed with Zenia MACIAS.
[2023-01-04 07:11] LABS: BASOPHILS % (AUTO) 0.3 % (0-1); EOSINOPHILS # (AUTO) 0.2 X10'3 (0-0.9); EOSINOPHILS % (AUTO) 2.6 % (0-6); HEMATOCRIT 26.8 % (35.0-45.0); LYMPHOCYTES # (AUTO) 1.2 X10'3 (1.1-4.8); LYMPHOCYTES % (AUTO) 12.8 % (21-51); MEAN CORPUSCULAR HGB CONC 33.4 g/dL (33.0-36.5); MEAN CORPUSCULAR VOLUME 92.8 FL (78-98); MEAN PLATELET VOLUME 7.8 FL (7.4-10.4); MONOCYTES # (AUTO) 0.5 X10'3 (0-0.9); MONOCYTES % (AUTO) 5.7 % (2-12); NEUTROPHILS # (AUTO) 7.4 X10'3 (1.8-7.7); NEUTROPHILS % (AUTO) 78.6 % (42-75); PLATELET COUNT 173 X10'3 (140-440); RED BLOOD COUNT 2.89 X10'6 (4.20-5.60); RED CELL DISTRIBUTION WIDTH 15.8 % (11.5-14.5); WHITE BLOOD COUNT 9.5 X10'3 (4.5-11.0)
[2023-01-04 07:28] LABS: ALANINE AMINOTRANSFERASE 21 U/L (12-78); ALBUMIN 3.1 G/DL (3.4-5.0); ALBUMIN/GLOBULIN RATIO 1.3 (1.1-1.5); ALKALINE PHOSPHATASE 69 IU/L (46-116); ANION GAP 10 (8-16); ASPARTATE AMINO TRANSFERASE 24 U/L (10-37); BILIRUBIN,TOTAL 0.7 MG/DL (0.1-1.0); BLOOD UREA NITROGEN 16 MG/DL (7-18); BUN/CREATININE RATIO 28.1 (10.0-20.0); CHLORIDE 106 MMOL/L (99-107); CREATININE 0.57 MG/DL (0.40-0.90); GLUCOSE 93 MG/DL (70-104); MAGNESIUM 1.7 MG/DL (1.5-2.4); POTASSIUM 3.3 MMOL/L (3.5-5.1); SODIUM 143 MMOL/L (135-145); TOTAL CARBON DIOXIDE 26.6 MMOL/L (24-32); TOTAL PROTEIN 5.4 G/DL (6.4-8.2); eGFR > 90 ML/MIN
[2023-01-04] MEDS: K and/or MAG REPLACEMENT MC SCH (08:00)
[2023-01-04] MEDS: pantoprazole 40MG/NS 100ML BAG 100 ML IV SCH (08:50)
[2023-01-04] MEDS: metroNIDAZOLE-Flagyl 500mg/NS 100 ML IV SCH (08:50)
[2023-01-04] MEDS: cefepime 2g/NS 100ml ADVANTAGE 100 ML IV SCH (08:51)
[2023-01-04] MEDS: heparin, porcine 5000 units/ml vial SQ SCH (08:52)
[2023-01-04 11:00] VITALS: BP 156/87
[2023-01-04] MEDS: potassium Cl 40MEQ/270ML bag 270 ML IV PRN (11:22)
[2023-01-04] MEDS: MVI, adult No.4 with vit. K 10 ML in dextrose 5% water 500ml 500 ML IV SCH ×2 (11:22)
[2023-01-04 11:59] VITALS: BP_SYST 156
--- NOTE | 2023-01-04 13:30 | NUR ---
Removed pt CL. no bleeding. Pt tolerated well. Report called to Aniya MACIAS at [facility]. Addendum: 01/04/23 at 1428 by Priti Contreras RN Amended: Links added.
== END 2023-01-04 14:39 | DRG 853 ==
LOC: ER 15:45 → ED HOLD 19:26 → EDBEDREQ 21:04 → PCU 3S 22:10 → ICU 2S 12-26 08:06 → PCU 3S 12-29 17:40
PROVIDERS: ADMIT Internal Medicine; ATTEND Family Medicine
PROC: 0D9670Z Drainage of Stomach with Drainage Device, Via Natural or Artificial Opening (ICD-10-PCS; 2022-12-25)
PROC: B4201ZZ Computerized Tomography (CT Scan) of Abdominal Aorta using Low Osmolar Contrast (ICD-10-PCS; 2022-12-25)
PROC: B4241ZZ Computerized Tomography (CT Scan) of Superior Mesenteric Artery using Low Osmolar Contrast (ICD-10-PCS; 2022-12-25)
PROC: B4281ZZ Computerized Tomography (CT Scan) of Bilateral Renal Arteries using Low Osmolar Contrast (ICD-10-PCS; 2022-12-25)
PROC: B42C1ZZ Computerized Tomography (CT Scan) of Pelvic Arteries using Low Osmolar Contrast (ICD-10-PCS; 2022-12-25)
PROC: B4211ZZ Computerized Tomography (CT Scan) of Celiac Artery using Low Osmolar Contrast (ICD-10-PCS; 2022-12-25)
PROC: 3E0T3BZ Introduction of Anesthetic Agent into Peripheral Nerves and Plexi, Percutaneous Approach (ICD-10-PCS; 2022-12-26)
PROC: 02HV33Z Insertion of Infusion Device into Superior Vena Cava, Percutaneous Approach (ICD-10-PCS; 2022-12-26)
PROC: B548ZZA Ultrasonography of Superior Vena Cava, Guidance (ICD-10-PCS; 2022-12-26)
PROC: 0DBA0ZZ Excision of Jejunum, Open Approach (ICD-10-PCS; principal; 2022-12-26 10:25)
PROC: 30233N1 Transfusion of Nonautologous Red Blood Cells into Peripheral Vein, Percutaneous Approach (ICD-10-PCS; 2022-12-27)
DX: A41.9 Sepsis, unspecified organism (principal); E43 Unspecified severe protein-calorie malnutrition; J96.00 Acute respiratory failure, unspecified whether with hypoxia or hypercapnia; K55.029 Acute infarction of small intestine, extent unspecified; R65.21 Severe sepsis with septic shock; K56.50 Intestinal adhesions [bands], unspecified as to partial versus complete obstruction; E87.20 Acidosis, unspecified; K55.9 Vascular disorder of intestine, unspecified; Z99.11 Dependence on respirator [ventilator] status; K21.9 Gastro-esophageal reflux disease without esophagitis; E11.9 Type 2 diabetes mellitus without complications; E87.6 Hypokalemia; I48.91 Unspecified atrial fibrillation; D69.6 Thrombocytopenia, unspecified; D64.9 Anemia, unspecified; I25.10 Atherosclerotic heart disease of native coronary artery without angina pectoris; E78.5 Hyperlipidemia, unspecified; I11.0 Hypertensive heart disease with heart failure; I50.9 Heart failure, unspecified; E66.9 Obesity, unspecified; K46.9 Unspecified abdominal hernia without obstruction or gangrene; I67.9 Cerebrovascular disease, unspecified; Z68.32 Body mass index [BMI] 32.0-32.9, adult; Z83.3 Family history of diabetes mellitus; Z82.49 Family history of ischemic heart disease and other diseases of the circulatory system; Z85.3 Personal history of malignant neoplasm of breast; Z90.49 Acquired absence of other specified parts of digestive tract; Z95.5 Presence of coronary angioplasty implant and graft; Z88.6 Allergy status to analgesic agent; Z88.0 Allergy status to penicillin; Z88.2 Allergy status to sulfonamides; Z88.8 Allergy status to other drugs, medicaments and biological substances; Z85.41 Personal history of malignant neoplasm of cervix uteri; Z79.01 Long term (current) use of anticoagulants; Z91.018 Allergy to other foods; Z88.5 Allergy status to narcotic agent; Z79.899 Other long term (current) drug therapy; Z80.9 Family history of malignant neoplasm, unspecified
CPT/HCPCS: 36415; 36430; 36600; 71045; 74018; 74174; 74176; 80048; 80053; 80162; 81001; 82550; 82803; 82948; 83036; 83605; 83690; 83735; 83880; 84100; 84132; 84134; 84145; 84478; 84484; 85007; 85008; 85018; 85025; 85610; 85730; 86885; 86900; 86901; 86920; 87040; 87070; 87081; 88307; 93005; 93306; 94002; 94003; 94760; 97110; 97116; 97161; 97530; 99285; A4314; A4615; A4618; A5200; A6213; A6242; A6250; A6253; A6258; A6402; A6446; A6449; A7000; A9900; C9113; G0378; J0131; J0282; J0360; J0692; J0744; J1160; J1170; J1644; J1815; J1940; J2060; J2250; J2270; J2405; J2704; J2765; J3010; J3475; J3480; J3490; J7030; J7040; J7060; J7070; J7120; J7121; P9016; P9045; P9047; Q9963; Q9967

== ENCOUNTER 2024-12-12 22:43 | Emergency (ER) | payer MEDICARE ==
[~2024-12-12] VITALS: Ht 172.7 cm; Wt 82.3 kg
[~2024-12-12 22:43] MED LIST changes: -ASCO100T12 PO; -CALC-159 PO; -DABI150C PO; +DULA1.5P SQ; +INSU200I4 SQ; -LANTUS SQ; -MAGN400C PO; +MEMA10TA PO; -MEMA10TA56 PO; +METO-384 PO; -METO50TA7 PO; -MULT-955 PO; +RIVA20TA PO; +ROSU20TA2 PO
[2024-12-13] MEDS ORDERED: morphine 4 MG/ML inj SYRINge IV PRN
--- NOTE | 2024-12-13 00:05 | Physician Documentation ---
History of Present Illness ~ Chief Complaint: Abdominal Pain Stated Complaint: VOMITING Time Seen by MD: 23:46 Primary Medical Doctor: Mufti KATE Source: patient, family Mode of Arrival: POV, Ambulatory Exam Limitations: no limitations HPI Chief Complaint: Nausea and vomiting Caveat: None Independent Historians: Son History of Present Illness: Patient is an 79-year-old woman brought in by her son. Patient started feeling ill earlier this evening with nausea and vomiting. This was followed by diarrhea. This continued and the son decided to bring her in. Patient denies any fever. Patient denies any abdominal pain. Patient denies any blood in the stool or vomit. This was confirmed by the son. Patient has not had any sick contacts. No recent travel. No alleviating or exacerbating factors. Review of systems: All systems were reviewed and are negative except for what is indicated in the history of present illness. Past Medical History: Atrial fibrillation, HTN, type 2 diabetes, dementia Past Surgical History: Unknown type of hernia, bowel resection Social History: Lives alone, no tobacco use, no alcohol use, no drug use Medications: Reviewed as documented Nursing Notes Allergies: Reviewed as documented in Nursing Notes Medication Reconciliation Allergies: Coded Allergies: Penicillins (Verified Allergy, Severe, ANGIOEDEMA, 12/25/22) walnut (Verified Allergy, Intermediate, 12/25/22) develops rash with walnuts Nitrofuran Analogues (Verified Allergy, Mild, 12/25/22) Sulfa (Sulfonamide Antibiotics) (Unverified Allergy, Unknown, RASH, 12/25/22) amoxicillin (Unverified Allergy, Unknown, 12/25/22) azithromycin (Unverified Allergy, Unknown, 12/25/22) clavulanic acid (Unverified Allergy, Unknown, 04/03/20) exenatide (Unverified Allergy, Unknown, 04/09/18) ibuprofen (Verified Allergy, Unknown, 04/09/18) metformin (Unverified Allergy, Unknown, 04/09/18) nitrofurantoin (Verified Allergy, Unknown, EDEMA OF LEGS, 04/09/18) sulfamethoxazole (Verified Allergy, Unknown, EDEMA OF THE LEGS, 04/09/18) trimethoprim (Verified Allergy, Unknown, EDEMA OF THE LEGS, 04/09/18) morphine (Verified Adverse Reaction, Unknown, AGITATION, ALTERED MENTAL STATUS, VOMITING, 6/28/23) Uncoded Allergies: STERIODS (Allergy, Unknown, CHEST PAIN, 04/14/15) PATIENT DOES NOT KNOW WHAT STERIOD Scheduled Dulaglutide (Trulicity), 0.5 ML SQ Q7D, (Reported) Ezetimibe (Zetia), 1 TABLET PO HS, (Reported) Insulin Degludec (Tresiba Flextouch U-200), 40 UNITS SQ QAM, (Reported) Memantine Hcl (Namenda), 0.5 TAB PO Q12H, (Reported) Metoprolol Succinate (Metoprolol Succinate), 1 TAB PO BID, (Reported) Rivaroxaban (Xarelto), 1 TAB PO DAILY, (Reported) Rosuvastatin Calcium* (Crestor*), 1 TAB PO DAILY, (Reported) Scheduled PRN ONDANSETRON ODT 4mg tablet (Ondansetron Odt), 1 TAB SL Q6H PRN PRN for nausea/vomiting Past Medical History Past Medical History: Atrial Fibrillation, Coronary Artery Disease, Hypertension, Gastritis, GERD, Diabetes, Breast Cancer, Cervical Cancer/Dysplasia Past Surgical History: angioplasty Patient History: (CAD) Coronary arteriosclerosis FATHER, Onset:Unknown MOTHER, Onset:Unknown (CHF) Congestive heart failure MOTHER, Onset:Unknown (Cancer) Malignant carcinoid tumor MOTHER, Onset:60 years & older (DM Type 2) Diabetes mellitus type 2 MOTHER, Onset:Unknown Aortic aneurysm MOTHER, Onset:Unknown Thrombosis or embolism Brother No Family History of: (CABG) Coronary artery bypass grafting (COPD) Chronic obstructive lung disease (CVA) Cerebrovascular accident (DM Type1) Diabetes mellitus type 1 ([place]) Myocardial infarction (PVD) Peripheral vascular disease (TIA) Transient ischemic attack Alzheimer's disease Asthma Cardiac arrest Alcohol Use: None Drug Use: none Lives with: Alone Lives In: Home Occupation: retired Review of Systems All Other Systems at this time: Reviewed and Negative ROS Patient denies any other acute symptoms other than above. All other systems are negative Physical Exam Vital Signs: RN Vital Signs have been reviewed: Yes, Temperature: 98.3, Source: Oral, Heart Rate: 107, Respiratory Rate: 22, BP: 137/83, Pulse Oximetry: 100, Weight: 82.270 Pulse Oximetry Reflects: adequate oxygenation Physical Exam General Appearance: Mild distress, acutely and chronically ill-appearing, morbidly obese HEENT: Normal OP, moist oral mucosa, PERRL, EOMI Neck: supple, normal ROM, trachea midline Pulmonary: No respiratory distress, CTA, BS equal Cardiac: RRR, no murmur, rub or gallop, GI: nondistended, soft, nontender, normal bowel sounds, no guarding, no rebound Extremities: normal ROM, no swelling, non-tender Skin: intact, dry, warm, no rashes Neuro: AAOx3, speech is clear, no focal motor weakness Psych: normal affect, good eye contact, no apparent hallucination, normal speech Progress Results/Orders Results/Orders Orders - IGLESIA GARCIA MD Urinalysis, Cult If Indicated (12/12/24 22:52) Straight Cath For Urine Sample (12/12/24 22:52) Stat Ekg (12/12/24 ) Ct Abdomen Pelvis (12/12/24 23:59) Monitor (12/12/24 23:59) Saline Lock (12/12/24 23:59) Po Challenge (12/13/24 03:18) Completed Orders - IGLESIA GARCIA MD Cbc/Diff (12/12/24 22:52) BMP (12/12/24 22:52) Lipase (12/12/24 22:52) CMP (12/12/24 22:52) Ondansetron Inj. (Zofran 4mg/2ml Vial) (12/13/24 00:00) Morphine 4mg/Ml Inj. (Morphine Inj.) (12/13/24 00:00) Ct Abdomen Pelvis (12/12/24 23:59) Normal Saline 1000ml (Sodium Chloride 10 (12/13/24 00:00) Medications Received in ER Medications (Trade) Dose Ordered Sig/Tramaine Route PRN Reason Start Time Stop Time Status Last Admin Dose Admin (Zofran 4mg/2ml vial) 4 mg ONCE ONCE IV 12/13/24 00:00 12/13/24 00:01 DC 12/13/24 00:12 4 MG (sodium chloride 1000ml IV soln) 500 ml ONCE ONCE IVB 12/13/24 00:00 12/13/24 00:01 DC 12/13/24 00:12 500 ML Vital Signs 12/12/24 12/12/24 12/13/24 12/13/24 22:53 22:59 01:22 03:05 Temp 98.3 98.0 Pulse 107 98 98 Resp 22 22 16 16 B/P (MAP) 137/83 140/77 (98) 126/66 (86) Pulse Ox 100 94 97 O2 Flow Rate 0 0 12/13/24 03:52 Temp 98.4 Pulse 93 Resp 16 B/P (MAP) 166/66 Pulse Ox 96 Laboratory Tests Test 12/13/24 00:05 White Blood Count 9.9 Red Blood Count 4.12 L Hemoglobin 12.7 Hematocrit 35.9 Mean Corpuscular Volume 87.2 Mean Corpuscular Hemoglobin 30.8 Mean Corpuscular Hemoglobin Concent 35.3 Red Cell Distribution Width 13.2 Platelet Count 149 Mean Platelet Volume 7.3 L Neutrophils (%) (Auto) 90.1 H Lymphocytes (%) (Auto) 4.2 L Monocytes (%) (Auto) 5.1 Eosinophils (%) (Auto) 0.3 Basophils (%) (Auto) 0.3 Neutrophils # (Auto) 8.9 H Lymphocytes # (Auto) 0.4 L Monocytes # (Auto) 0.5 Eosinophils # (Auto) 0.0 Basophils # (Auto) 0.0 CBC Comment Sodium Level 135 Potassium Level 3.5 Chloride Level 99 Carbon Dioxide Level 23.3 L Anion Gap 13 Blood Urea Nitrogen 16 Creatinine 0.86 Estimated GFR/1.73 m2 63 BUN/Creatinine Ratio 18.6 Glucose Level 197 H Calcium Level 8.8 Total Bilirubin 0.8 Aspartate Amino Transf (AST/SGOT) 35 Alanine Aminotransferase (ALT/SGPT) 40 Alkaline Phosphatase 105 Total Protein 7.4 Albumin 3.8 Globulin 3.6 Albumin/Globulin Ratio 1.1 Lipase 35 Chemistry Comments Medical Decision Making Additional info obtained from: family Findings Differential diagnosis includes but is not limited to: Small-bowel obstruction, gastritis, duodenitis, acute cholecystitis, biliary colic, choledocholithiasis, pancreatitis, volvulus, acute kidney injury, dehydration, electrolyte abnormality, acute appendicitis EKG independent interpretation: Performed at 11:11 p.m.. Atrial fibrillation, heart rate 104, nonspecific ST changes, normal axis Abdomen and pelvis CT scan without IV contrast, indication: Nausea and vomiting Impression: 1. No acute abdominal or pelvic findings. 2. Mildly distended fluid and gas-filled segments of predominantly small bowel throughout the abdomen without definite evidence of obstruction. Postsurgical changes noted. Laboratory data independent interpretation: CBC: Unremarkable CMP: Unremarkable Emergency department course/medical decision-making: Patient presents with nausea and vomiting. Patient is given 500 cc of normal saline and IV Zofran. Patient has been resting comfortably. Lab work is unremarkable. No acute findings on CT. 3:00 p.m.: Patient re-evaluated. Patient was sleeping. Patient does not complaining of any abdominal pain. Nausea has resolved. Patient will be given a p.o. challenge. Patient remains to have a normal abdominal exam. No admission criteria have been identified. The cause for her vomiting and diarrhea is unknown. Patient is afebrile and hemodynamically stable. No medical or surgical emergency has been identified. Patient is stable for discharge. Patient will be discharged at 6:00 a.m. to allow family at home to rest. Departure Time of Disposition: 03:22 Disposition: 01 HOME / SELF CARE / HOMELESS Impression: Primary Impression: Nausea vomiting and diarrhea Condition: Improved Discharge Instructions: Viral Gastroenteritis, Adult Additional Instructions: RETURN TO THE EMERGENCY A PERMANENT IF YOUR SYMPTOMS RECUR. CAUSE FOR YOUR SYMPTOMS IS UNKNOWN BUT MAY BE VIRAL. Prescriptions ONDANSETRON ODT 4mg tablet (ONDANSETRON ODT) 4 Mg Tab.rapdis 1 TAB SL Q6H PRN PRN for nausea/vomiting for 4 Days, #16 TAB 0 Refills Prov: IGLESIA GARCIA MD 12/13/24 Education Educated: Patient, Family Educated regarding: diagnosis, treatment, need for follow up Signature Scribe Signature: No scribe Attestation: No scribe IGLESIA GARCIA MD Dec 13, 2024 00:05
[2024-12-13] MEDS: ondansetron/PF 4mg/2ml inj IV ONE (00:12)
[2024-12-13] MEDS: normal saline 1000ML IV soln IVB ONE (00:12)
[2024-12-13 00:18] LABS: BASOPHILS % (AUTO) 0.3 % (0-1); EOSINOPHILS % (AUTO) 0.3 % (0-6); HEMATOCRIT 35.9 % (35.0-45.0); HEMOGLOBIN 12.7 g/dl (12.0-16.0); LYMPHOCYTES # (AUTO) 0.4 X10'3 (1.1-4.8); LYMPHOCYTES % (AUTO) 4.2 % (21-51); MEAN CORPUSCULAR HEMOGLOBIN 30.8 PG (27.0-31.0); MEAN CORPUSCULAR HGB CONC 35.3 g/dL (33.0-36.5); MEAN CORPUSCULAR VOLUME 87.2 FL (78-98); MEAN PLATELET VOLUME 7.3 FL (7.4-10.4); MONOCYTES # (AUTO) 0.5 X10'3 (0-0.9); MONOCYTES % (AUTO) 5.1 % (2-12); NEUTROPHILS # (AUTO) 8.9 X10'3 (1.8-7.7); NEUTROPHILS % (AUTO) 90.1 % (42-75); PLATELET COUNT 149 X10'3 (140-440); RED BLOOD COUNT 4.12 X10'6 (4.20-5.60); RED CELL DISTRIBUTION WIDTH 13.2 % (11.5-14.5); WHITE BLOOD COUNT 9.9 X10'3 (4.5-11.0)
[2024-12-13 00:34] LABS: ALANINE AMINOTRANSFERASE 40 U/L (12-78); ALBUMIN 3.8 G/DL (3.4-5.0); ALBUMIN/GLOBULIN RATIO 1.1 (1.1-1.5); ALKALINE PHOSPHATASE 105 IU/L (46-116); ANION GAP 13 (8-16); ASPARTATE AMINO TRANSFERASE 35 U/L (10-37); BILIRUBIN,TOTAL 0.8 MG/DL (0.1-1.0); BLOOD UREA NITROGEN 16 MG/DL (7-18); BUN/CREATININE RATIO 18.6 (10.0-20.0); CALCIUM 8.8 MG/DL (8.5-10.1); CHLORIDE 99 MMOL/L (99-107); CREATININE 0.86 MG/DL (0.40-0.90); GLUCOSE 197 MG/DL (70-104); LIPASE 35 U/L (16-77); POTASSIUM 3.5 MMOL/L (3.5-5.1); SODIUM 135 MMOL/L (135-145); TOTAL CARBON DIOXIDE 23.3 MMOL/L (24-32); TOTAL PROTEIN 7.4 G/DL (6.4-8.2); eCRCL 52 ML/MIN; eGFR 63 ML/MIN
--- NOTE | 2024-12-13 01:17 | RADIOLOGY REPORT ---
Exam: CT CT ABDOMEN PELVIS History: Abdominal Pain Comparison Study: CT ABDOMEN PELVIS on DOS: 12/26/22 Technique: Multidetector spiral CT of the abdomen was performed from lung bases to pubic symphysis. I maging was performed without IV contrast. Axial, coronal and sagittal multiplanar reformats were obta ined from the axial data set by the technologist. Radiation Dose : 1. Abdomen/Pelvis: CTDIvol 27.99 mGy, DLP 1227.33 mGy*cm. Findings: Evaluation of solid organs is limited due to lack of intravenous contrast use. Lung Bases: No acute or significant lung base finding. Normal heart size. No pleural or pericardial effusion. Liver: The liver is normal in size. No focal lesions. Gallbladder and Biliary Tree: Status post cholecystectomy. Spleen: Unremarkable Pancreas: The pancreas is grossly normal in appearance. Adrenal Glands: Unremarkable Kidneys: Kidneys are grossly normal without calculi or hydronephrosis. Bladder: Grossly unremarkable for degree of distention. Bowel: The stomach is grossly normal in appearance. Anastomotic bowel sutures are present within the lower abdomen. Mildly distended fluid and gas-filled segments of predominantly small bowel throughout the abdomen without definite evidence of obstruction. The appendix is not visualized; however, no se condary findings of acute appendicitis identified. Ascites: Absent Lymphadenopathy: No mesenteric, retroperitoneal or periportal lymphadenopathy. Abdominal Wall and Mesentery: Unremarkable. Vasculature: The visualized abdominal aorta is normal in size and caliber. Atherosclerotic vascular c alcifications. Evaluation of abdominal and pelvic vessels is limited due to lack of intravenous contr ast. Pelvic Organs: Unremarkable Musculoskeletal: No aggressive focal bony lesions, acute fractures or dislocation. Chronic appearing compression fracture deformity of the T12 vertebral body has resulted in between 25 and 50% height lo ss. IMPRESSION: 1. No acute abdominal or pelvic findings. 2. Mildly distended fluid and gas-filled segments of predominantly small bowel throughout the abdomen without definite evidence of obstruction. Postsurgical changes noted. Radiation optimization: All CT scans at this facility use at least one of these dose optimization cortney hniques: automated exposure control mA and/or kV adjustment per patient size (includes targeted exam s where dose is matched to clinical indication) or iterative reconstruction.
[2024-12-13] MEDS ORDERED: ONDA-243 SL (03:23)
[2024-12-13 03:52] VITALS: BP 166/66; PULSE 93; RESP 16; TEMP 98.4; O2SAT 96
--- NOTE | 2024-12-14 06:38 | ELECTROCARDIOGRAPH REPORT ---
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
== END 2024-12-13 04:16 | disposition home or self-care (01) ==
LOC: ER 22:44
DX: R11.2 Nausea with vomiting, unspecified (principal); R19.7 Diarrhea, unspecified; E11.9 Type 2 diabetes mellitus without complications; I11.0 Hypertensive heart disease with heart failure; I50.9 Heart failure, unspecified; I25.10 Atherosclerotic heart disease of native coronary artery without angina pectoris; I48.91 Unspecified atrial fibrillation; K21.9 Gastro-esophageal reflux disease without esophagitis; Z85.3 Personal history of malignant neoplasm of breast; F03.90 Unspecified dementia, unspecified severity, without behavioral disturbance, psychotic disturbance, mood disturbance, and anxiety; Z85.41 Personal history of malignant neoplasm of cervix uteri; Z88.0 Allergy status to penicillin; Z88.2 Allergy status to sulfonamides; Z88.1 Allergy status to other antibiotic agents; Z88.5 Allergy status to narcotic agent; Z88.6 Allergy status to analgesic agent; Z79.899 Other long term (current) drug therapy; Z60.2 Problems related to living alone
CPT/HCPCS: 36415; 74176; 80053; 83690; 85025; 93005; 96374; 99285; J2405; J7030